=== PATIENT | male | born 1965 | race African-American/Black ===

== ENCOUNTER 2016-12-13 00:34 | Emergency (ER) | payer OTHER ==
[2016-12-13 00:56] VITALS: BP 129/64; PULSE 88; TEMP 97.8; BMI 27.4
--- NOTE | 2016-12-13 02:05 | PDOC ---
History of Present Illness - General History Source: Patient Exam Limitations: No Limitations - History of Present Illness Initial Comments: 12/13/16 02:56 The patient is a 51-year-old male, with a significant past medical history of diabetes, hyperlipidemia, hypercholesterolemia, lymphoma, CVA (2009), who presents to the emergency department complaining of bilateral pelvic pain that began today. He describes his pain as sharp and constant. He states he feels weak, secondary to pelvic pain. The patient reports he was previously diagnosed with lymphoma within the pelvis bilaterally. After diagnosis about a year ago, his oncologist, Dr. Singh, planned to administer chemotherapy, but the patient states he believes he is not in a stable state in order to follow-up with this plan. The patient reports he currently lives at the [facility] in [place]. The patient reports he has not returned for a follow-up with oncologist. His last visit to his PCP was also about a year ago. He reports he experienced an episode of chest tightness and dyspnea earlier today. He denies any diaphoresis, palpitations, and shortness of breath. He denies any changes in appetite. He denies fever, chills, cough, headache, and dizziness. He denies dysuria, frequency, urgency, and hematuria. Allergies: Chlordiazepoxide HCl (nausea) Past Surgical History: None reported. Social History: Former smoker. ETOH and cocaine abuse. PCP: Dr. Jaswinder Tadeo ([phone]) <Isacc Batista - Last Filed: 12/13/16 06:20> <Vidya Kat - Last Filed: 12/13/16 21:19> - General Stated Complaint: PAIN Time Seen by Provider: 12/13/16 00:54 Past History <Isacc Batista - Last Filed: 12/13/16 06:20> - Past Medical History Anemia: No Asthma: No Cancer: No Cardiac Disorders: No CVA: Yes (2010, RT. HEMIPARSIS) COPD: No CHF: No Dementia: No Diabetes: Yes (ON MEDS) GI Disorders: No Disorders: No HTN: Yes Hypercholesterolemia: Yes Kidney Stones: No Liver Disease: No Suicide Attempt (Hx): No Seizures: Yes (SEIZURES- ETOH RLT last 2014) Thyroid Disease: No - Surgical History Abdominal Surgery: No Appendectomy: No Cardiac Surgery: No Cholecystectomy: No Lung Surgery: No Neurologic Surgery: No Orthopedic Surgery: No - Reproductive History Testicular Surgery: No - Immunization History Immunization Up to Date: Yes - Psycho/Social/Smoking Cessation Hx Anxiety: Yes Suicidal Ideation: No Smoking Status: No Smoking History: Never smoked Have you smoked in the past 12 months: Yes Number of Cigarettes Smoked Daily: 3 If you are a former smoker, when did you quit?: 2 MONTHS AGO Cigars Per Day: 0 'Breaking Loose' booklet given: 10/15/16 Hx Alcohol Use: Yes Drug/Substance Use Hx: Yes Substance Use Type: Alcohol, Cocaine Hx Substance Use Treatment: Yes (09/14 [facility]) <Vidya Kat - Last Filed: 12/13/16 21:19> - Past Medical History Allergies/Adverse Reactions: Allergies Allergy/AdvReac Type Severity Reaction Status Date / Time chlordiazepoxide HCl Allergy Nausea Verified 12/13/16 05:17 [From Librium] Home Medications: Ambulatory Orders Insulin Glargine,Hum.rec.anlog [Lantus Solostar PEN -] 50 units SQ HS #1 ins Aspirin [ASA -] 81 mg PO DAILY #30 tab.chew 09/11/16 Metformin HCl [Glucophage -] 500 mg PO DAILY #30 tablet 09/11/16 Simvastatin [Zocor -] 20 mg PO HS #30 tablet 09/11/16 Review of Systems - Review of Systems Able to Perform ROS?: Yes Comments:: 12/13/16 02:56 GENERAL/CONSTITUTIONAL: +General weakness. No fever or chills. HEAD, EYES, EARS, NOSE AND THROAT: No change in vision. No ear pain or discharge. No sore throat. CARDIOVASCULAR: No chest pain or shortness of breath. RESPIRATORY: No cough, wheezing, or hemoptysis. GASTROINTESTINAL: No nausea, vomiting, diarrhea or constipation. GENITOURINARY: +Bilateral pelvic lymphadenopathy within the inguinal region. No dysuria, frequency, or change in urination. MUSCULOSKELETAL: No joint or muscle swelling or pain. No neck or back pain. SKIN: No rash NEUROLOGIC: No headache, vertigo, loss of consciousness, or change in strength/ sensation. ENDOCRINE: No increased thirst. No abnormal weight change. HEMATOLOGIC/LYMPHATIC: No anemia, easy bleeding, or history of blood clots. ALLERGIC/IMMUNOLOGIC: No hives or skin allergy. <BatistaKaleighraetanisha - Last Filed: 12/13/16 06:20> *Physical Exam - Vital Signs Last Vital Signs Temp Pulse Resp BP Pulse Ox 97.8 F 88 20 129/64 99 12/13/16 00:35 12/13/16 00:35 12/13/16 00:35 12/13/16 00:35 12/13/16 00:35 - Physical Exam Comments: 12/13/16 02:57 GENERAL: Awake, alert, and fully oriented, in no acute distress HEAD: No signs of trauma EYES: PERRLA, EOMI, sclera anicteric, conjunctiva clear ENT: Auricles normal inspection, hearing grossly normal, nares patent, oropharynx clear without exudates. Moist mucosa NECK: Normal ROM, supple, no lymphadenopathy, JVD, or masses LUNGS: Breath sounds equal, clear to auscultation bilaterally. No wheezes, and no crackles HEART: Regular rate and rhythm, normal S1 and S2, no murmurs, rubs or gallops ABDOMEN: Soft, nontender, normoactive bowel sounds. No guarding, no rebound. No masses PELVIC: +Lymph node enlargement within the pelvis bilaterally within the inguinal regions. +Left groin lymphadenopathy approximately 10 cm in length and 4-6 cm deep. Right groin lymphadenopathy is significantly smaller. EXTREMITIES: +Minimal pitting edema in legs bilaterally. Normal range of motion. No clubbing or cyanosis. No cords, erythema, or tenderness NEUROLOGICAL: Cranial nerves II through XII grossly intact. Normal speech, normal gait SKIN: Warm, Dry, normal turgor, no rashes or lesions noted. <Isacc Batista - Last Filed: 12/13/16 06:20> - Vital Signs Last Vital Signs Temp Pulse Resp BP Pulse Ox 97.8 F 88 20 129/64 99 12/13/16 00:35 12/13/16 00:35 12/13/16 00:35 12/13/16 00:35 12/13/16 00:35 <Vidya Kat - Last Filed: 12/13/16 21:19> Heart Score/ECG Review - ECG Impressions Comment:: 12/13/16 03:5Vent. rate: 81 bpm IMPRESSION: Normal sinus rhythm. <Isacc Batista - Last Filed: 12/13/16 06:20> ED Treatment Course - LABORATORY CBC & Chemistry Diagram: 12/13/16 03:13 12/13/16 03:13 <Isacc Batista - Last Filed: 12/13/16 06:20> - LABORATORY CBC & Chemistry Diagram: 12/13/16 03:13 12/13/16 03:13 <Vidya Kat - Last Filed: 12/13/16 21:19> Medical Decision Making - Medical Decision Making 12/13/16 05:58 First call placed to Dr. Quiñones 05:40. Second call placed to Dr. Quiñones 05:58. Case discussed with Dr. Quiñones 06:20. <Isacc Batista - Last Filed: 12/13/16 06:20> - Medical Decision Making 12/13/16 21:17 Pt comes with enlarged groin lymph nodes. He has not followed up for lymphoma treatment. Labs are relatively normal, and patient is stable. I spoke to the docot taking call for his PMD, Shwetha Sanders, who tells me that the lymphoma treatment should be done on an outpatient basis and he is asking patient to follow up with Dr. Tadeo and encouraging patient to follow with the oncologists at [facility], as he has been referred there multiple times in the past. <Vidya Kat - Last Filed: 12/13/16 21:19> *DC/Admit/Observation/Transfer - Attestations Scribe Attestion: 12/13/16 02:57 Documentation prepared by Isacc Batista, acting as behavioral medical director for Vidya Kat MD. <Isacc Batista - Last Filed: 12/13/16 06:20> - Discharge Dispostion Admit: No <Vidya Kat - Last Filed: 12/13/16 21:19> Diagnosis at time of Disposition: Lymphadenopathy, inguinal, Uncontrolled diabetes mellitus - Discharge Dispostion Disposition: HOME Condition at time of disposition: Stable - Referrals Referrals: Jaswinder Tadeo [Primary Care Provider] - - Patient Instructions Printed Discharge Instructions: DI for Lymph Node Biopsy, Type 1 Diabetes
[2016-12-13] MEDS ORDERED: KETOROLAC TROMETHAMINE 30 MG/1 ML VIAL IVPUSH ONE (02:22)
[2016-12-13] MEDS ORDERED: KETOROLAC TROMETHAMINE 30 MG/1 ML VIAL ONE (03:04)
[2016-12-13 03:22] LABS: MCH 28.1 pg (25.7-33.7); MEAN CELL VOLUME 87.7 fl (80-96); MEAN PLT VOLUME 8.5 fl (7.5-11.1); PLATELET COUNT 182 K/MM3 (134-434); RDW 14.4 % (11.9-15.9); WHITE BLOOD COUNT 5.6 K/mm3 (4.0-10.0)
[2016-12-13 03:44] LABS: ALBUMIN 3.2 g/dl (3.4-5.0); ALK PHOS 102 U/L (45-117); ANION GAP 9 (8-16); BILIRUBIN,TOTAL 0.2 mg/dL (0.2-1.0); CALCIUM 8.2 mg/dL (8.5-10.1); CO2 29 mmol/L (21-32); CREATININE 0.9 mg/dL (0.7-1.3); SGOT/AST 19 U/L (15-37); SGPT/ALT 32 U/L (12-78); TOT PROT 5.8 g/dl (6.4-8.2)
[2016-12-13 04:08] LABS: GLUCOSE,RANDOM 348 mg/dL (74-106)
[2016-12-13 04:24] LABS: PLATELET COMMENT2 NO CLOTTING DETECTED; PLATELET COMMENT3 FEW GIANT PLTS; PLATELET ESTIMATE ADEQUATE (NORMAL)
[2016-12-13] MEDS ORDERED: INSULIN REGULAR HUMAN 100 UNITS/ML *VIAL SQ ONE (06:21)
[2016-12-13] MEDS ORDERED: INSULIN REGULAR HUMAN 100 UNITS/ML *VIAL ONE (06:46)
--- NOTE | 2016-12-13 16:20 | EKG ---
Test Reason : Blood Pressure : / mmHG Vent. Rate : 081 BPM Atrial Rate : 081 BPM P-R Int : 158 ms QRS Dur : 086 ms QT Int : 400 ms P-R-T Axes : 049 -11 029 degrees QTc Int : 464 ms NORMAL SINUS RHYTHM NORMAL ECG WHEN COMPARED WITH ECG OF 01-JUN-2016 08:58, NONSPECIFIC T WAVE ABNORMALITY HAS REPLACED INVERTED T WAVES IN INFERIOR LEADS Confirmed by PINA GALARZA, NAZARIO ([id number]) on 12/13/2016 4:19:48 PM Referred By: Confirmed By:NAZARIO HELLER MD
== END 2016-12-13 06:50 | disposition home or self-care (01) ==
LOC: JER 00:34
PROC: 3E013VG Introduction of Insulin into Subcutaneous Tissue, Percutaneous Approach (ICD-10-PCS; principal; 2016-12-13)
PROC: 3E0333Z Introduction of Anti-inflammatory into Peripheral Vein, Percutaneous Approach (ICD-10-PCS; 2016-12-13)
DX: C85.86 Other specified types of non-Hodgkin lymphoma, intrapelvic lymph nodes (principal); R59.0 Localized enlarged lymph nodes; E10.65 Type 1 diabetes mellitus with hyperglycemia; Z79.4 Long term (current) use of insulin; Z79.84 Long term (current) use of oral hypoglycemic drugs; I10 Essential (primary) hypertension; E78.00 Pure hypercholesterolemia, unspecified; G40.509 Epileptic seizures related to external causes, not intractable, without status epilepticus; I69.851 Hemiplegia and hemiparesis following other cerebrovascular disease affecting right dominant side; Z87.891 Personal history of nicotine dependence
CPT/HCPCS: 36415; 71020-TC; 80053; 85025; 93005; 93010; 96372; 96374; 99282-25

== ENCOUNTER 2017-01-02 15:31 | Inpatient (IN) | payer OTHER ==
[2017-01-02 17:50] VITALS: BMI 28.9
--- NOTE | 2017-01-02 23:00 | HP ---
CIWA Score - CIWA Score Nausea/Vomitin-Mild Nausea/No Vomiting Muscle Tremors: 4-Moderate,w/Arms Extend Anxiety: 4-Mod. Anxious/Guarded Agitation: 4-Moderately Restless Paroxysmal Sweats: 1-Minimal Palms Moist Orientation: 1-Uncertain about Date Tacttile Disturbances: 0-None Auditory Disturbances: 0-None Visual Disturbances: 0-None Headache: 2-Mild CIWA-Ar Total Score: 17 Admission ROS BHS - HPI Chief Complaint: WITHDRAWAL SX Allergies/Adverse Reactions: Allergies Allergy/AdvReac Type Severity Reaction Status Date / Time chlordiazepoxide HCl Allergy Nausea Verified 12/13/16 05:17 [From Librium] History of Present Illness: 51 YEARS OLD MALE WITH LONG HISTORY OF ALCOHOL NICOTINE DEPENDENCE, HAS DIABETES II, LUNG CA AND AXILLARIES + GROIN SWELLING, HAS BIPOLAR, LONGEST SOBRIETY 8 YEARS IS ADMITTED TO DETOX Exam Limitations: No Limitations - Ebola screening Have you traveled outside of the country in the last 21 days: No Have you had contact with anyone from an Ebola affected area: No Have you been sick,other than usual withdrawal symptoms: No Do you have a fever: No - Review of Systems Constitutional: Chills, Changes in sleep, Weight Stable EENT: reports: No Symptoms Reported Respiratory: reports: SOB with Exertion Cardiac: reports: Chest Pain (HAS CHRONIC CHEST PAIN), Palpitations GI: reports: Nausea, Poor Fluid Intake, Abdominal cramping : reports: No Symptoms Reported Musculoskeletal: reports: Back Pain Integumentary: reports: No Symptoms Reported Neuro: reports: Tremors Endocrine: reports: No Symptoms Reported Hematology: reports: No Symptoms Reported Psychiatric: reports: Judgement Intact, Depressed Other Systems: Reviewed and Negative Patient History - Patient Medical History Hx Anemia: No Hx Asthma: No Hx Chronic Obstructive Pulmonary Disease (COPD): No Hx Cancer: No Hx Cardiac Disorders: No Hx Congestive Heart Failure: No Hx Hypertension: No Hx Hypercholesterolemia: Yes Hx Pacemaker: No HX Cerebrovascular Accident: Yes (2009, RT. HEMIPARSIS) Hx Seizures: Yes (SEIZURES- ETOH RLT last 2014) Hx Dementia: No Hx Diabetes: Yes (ON MEDS) Hx Gastrointestinal Disorders: No Hx Liver Disease: No Hx Genitourinary Disorders: No Hx Sexually Transmitted Disorders: No Hx Renal Disease (ESRD): No Hx Thyroid Disease: No Hx Human Immunodeficiency Virus (HIV): No (last ) Hx Hepatitis C: No Hx Depression: No Hx Suicide Attempt: Yes (20 YEARS AGO CUT WRISTS X 7 STITICHES) Hx Bipolar Disorder: No Hx Schizophrenia: Yes (PARANOID SCHIZOPHRENIA) - Patient Surgical History Past Surgical History: No Hx Neurologic Surgery: No Hx Cataract Extraction: No Hx Cardiac Surgery: No Hx Lung Surgery: No Hx Breast Surgery: No Hx Breast Biopsy: No Hx Abdominal Surgery: No Hx Appendectomy: No Hx Cholecystectomy: No Hx Genitourinary Surgery: No Hx Orthopedic Surgery: No Other Surgical History: TRACHEOSPLASTY AT AGE 3 - PPD History Previous Implant?: Yes Documented Results: Negative w/proof Implanted On Prior [facility] Admission?: Yes Date: 01/04/16 Results: 0 mm PPD to be Administered?: Yes - Smoking Cessation Smoking history: Current every day smoker Have you smoked in the past 12 months: Yes Aproximately how many cigarettes per day: 3 If you are a former smoker, when did you quit?: 2 MONTHS AGO Cigars Per Day: 0 Hx Chewing Tobacco Use: No Initiated information on smoking cessation: Yes 'Breaking Loose' booklet given: 01/02/17 - Substance & Tx. History Hx Alcohol Use: Yes Hx Substance Use: Yes Substance Use Type: Alcohol, Cocaine Hx Substance Use Treatment: Yes - Substances Abused Alcohol Route: Oral Frequency: Daily Amount used: 4 PINTS VOLKA Age of first use: 15 Date of Last Use: 01/02/17 Family Disease History - Family Disease History Family Disease History: Diabetes: Father, Heart Disease: Mother (HTN), CA: Grandparent (BREAST) Admission Physical Exam S - Vital Signs Vital Signs: Vital Signs - 24 hr 01/02/17 17:48 Temperature 96.6 F L Pulse Rate 103 H Respiratory 18 Rate Blood Pressure 149/100 - Physical General Appearance: Yes: Nourished, Appropriately Dressed, Mild Distress, Tremorous, Irritable, Sweating, Anxious HEENTM: Yes: Hearing grossly Normal, Normal ENT Inspection, Normocephalic, Normal Voice Respiratory: Yes: Chest Non-Tender, Lungs Clear, Normal Breath Sounds, No Respiratory Distress, No Accessory Muscle Use Neck: Yes: Supple, Trachea in good position Breast: Yes: Breasts Symetrical Cardiology: Yes: Regular Rhythm, S1, S2, Tachycardia Abdominal: Yes: Non Tender, Soft Genitourinary: Yes: Within Normal Limits Back: Yes: Normal Inspection Musculoskeletal: Yes: full range of Motion, Gait Steady, Back pain Extremities: Yes: Normal Inspection, Normal Range of Motion, Non-Tender, Tremors Neurological: Yes: Alert, Motor Strength 5/5, Normal Response, Depressed Affect Integumentary: Yes: Warm Lymphatic: Yes: Within Normal Limits - Diagnostic (1) Alcohol dependence with uncomplicated withdrawal Current Visit: Yes Status: Acute (2) Nicotine dependence Current Visit: Yes Status: Acute Qualifiers: Nicotine product type: cigarettes Substance use status: in withdrawal Qualified Code(s): F17.213 - Nicotine dependence, cigarettes, with withdrawal Comment: . (3) Psoriasis Current Visit: Yes Status: Chronic Comment: SCALP (4) Type II diabetes mellitus Current Visit: Yes Status: Acute Qualifiers: Diabetes mellitus complication status: with neurologic complications Diabetes mellitus complication detail: with polyneuropathy Diabetes mellitus terminal press operator insulin use: with jail use Qualified Code(s): E11.42 - Type 2 diabetes mellitus with diabetic polyneuropathy; Z79.4 - [facility] (current) use of insulin (5) Depression Current Visit: Yes Status: Suspected Qualifiers: Depression Type: dysthymia Qualified Code(s): F34.1 - Dysthymic disorder (6) Status post CVA Current Visit: Yes Status: Inactive Comment: 2009, NO SEQUALA (7) Lymphoma involving lung Current Visit: Yes Status: Chronic Comment: X 8 YEARS, HAD LUNG TISSUE BIOPSY 2015, SCHEDULE FOR CHEMOTHERAPY "AFTER DETOX AND REHAB" Cleared for Admission [facility] - Detox or Rehab [facility] Level of Care: Medically Managed Detox Regimen/Protocol: Librium [facility] Breath Alcohol Content Breath Alcohol Content: 0 Urine Drug Screen - Results Drug Screen Negative: No Urine Drug Screen Results: ULISSES-Cocaine
[2017-01-02] MEDS ORDERED: P-EPHED 60MG/TRIPROLIDI 2.5MG TABLET PO PRN (23:05)
[2017-01-02] MEDS ORDERED: MENTHOL/PHENOL 1 EACH UD MM PRN (23:05)
[2017-01-02] MEDS ORDERED: NICOTINE POLACRILEX 2 MG GUM BC PRN (23:05)
[2017-01-02] MEDS ORDERED: MAGNESIUM CITRATE 300 ML BOTTLE PO PRN (23:05)
[2017-01-02] MEDS ORDERED: diphenhydrAMINE HCL 50 MG CAPSULE PO PRN (23:05)
[2017-01-02] MEDS ORDERED: diazePAM 5 MG TABLET PO PRN (23:05)
[2017-01-02] MEDS ORDERED: LOPERAMIDE HCL 2 MG CAPSULE PO PRN (23:05)
[2017-01-02] MEDS ORDERED: diazePAM 5 MG TABLET PO ONE (23:05)
[2017-01-02] MEDS ORDERED: ACETAMINOPHEN 325 MG TABLET (FP) PO PRN (23:05)
[2017-01-02] MEDS ORDERED: hydrOXYzine PAMOATE 50 MG CAPSULE (FP) PO PRN (23:05)
[2017-01-02] MEDS ORDERED: guaiFENesin/D-METHORPHAN HB 10 ML UNIT-DOSE CUPS PO PRN (23:05)
[2017-01-02] MEDS ORDERED: MAGNESIUM HYDROX 2400MG/30ML ORAL SUSPENSION 30 ML CUP PO PRN (23:05)
[2017-01-02] MEDS ORDERED: MAG HYDROX/AL HYDROX/SIMETH 30 ML UNIT-DOSE CUP PO PRN (23:05)
[2017-01-03 01:10] LABS: URINE APPEARANCE CLEAR; URINE BILIRUBIN NEGATIVE (NEGATIVE); URINE BLOOD NEGATIVE (NEGATIVE); URINE COLOR LTYELLOW; URINE GLUCOSE (UA) 3+ (NEGATIVE); URINE KETONE NEGATIVE (NEGATIVE); URINE LEUK ESTERASE NEGATIVE (NEGATIVE); URINE NITRITE NEGATIVE (NEGATIVE); URINE PROTEIN NEGATIVE (NEGATIVE); URINE UROBILINOGEN NEGATIVE E.U./dl (0.2-1.0)
[2017-01-03] MEDS: diazePAM 5 MG TABLET PO SCH ×4 (01:29→22:18)
[2017-01-03] MEDS ORDERED: metFORMIN HCL 500 MG TABLET (FP) PO SCH (07:00)
[2017-01-03] MEDS: INSULIN SLIDING SCALE (NOVOLOG) 1 VIAL SQ SCH ×4 (08:06→22:23)
[2017-01-03] MEDS: ASPIRIN 81 MG CHEWABLE TABLETS PO SCH (10:13)
[2017-01-03] MEDS: PRENATAL VITAMINS W/ FOLIC ACID TABLET (FP) PO SCH (10:13)
[2017-01-03] MEDS: NICOTINE 14 MG/24 HOURS TOPICAL PATCH TD SCH (10:14)
--- NOTE | 2017-01-03 10:18 | PN ---
S CIWA - CIWA Score Nausea/Vomitin Muscle Tremors: 4-Moderate,w/Arms Extend Anxiety: 4-Mod. Anxious/Guarded Agitation: 4-Moderately Restless Paroxysmal Sweats: 3 Orientation: 0-Oriented Tacttile Disturbances: 1-Very Mild Itch/Numbness Auditory Disturbances: 0-None Visual Disturbances: 0-None Headache: 4-Moderately Severe CIWA-Ar Total Score: 22 BHS Progress Note (SOAP) Subjective: nausea, sweats, interrupted sleep, anxiety,t remros, headache Objective: 01/03/17 10:17 Vital Signs - 24 hr 01/02/17 01/03/17 17:48 03:30 Temperature 96.6 F L Pulse Rate 103 H Respiratory 18 18 Rate Blood Pressure 149/100 Laboratory Tests 01/03/17 00:23 Urine Color Ltyellow Urine Appearance Clear Urine pH 5.0 Ur Specific [place] 1.036 H Urine Protein Negative Urine Glucose (UA) 3+ H Urine Ketones Negative Urine Blood Negative Urine Nitrite Negative Urine Bilirubin Negative Urine Urobilinogen Negative Ur Leukocyte Esterase Negative labs still pending, glycosuria Assessment: 01/03/17 10:18 withdrawal sx, hyperglycemia fromuncontrolled diabtese Plan: cont detox, BGM, insulaincoverage,diabetic diet, fluids, encourage ambualtion
[2017-01-03 10:53] LABS: ALBUMIN 3.2 g/dl (3.4-5.0); ANION GAP 12 (8-16); CALCIUM 8.5 mg/dL (8.5-10.1); CO2 28 mmol/L (21-32); CREATININE 0.9 mg/dL (0.7-1.3); GLUCOSE,RANDOM 165 mg/dL (74-106); SGOT/AST 17 U/L (15-37); SGPT/ALT 24 U/L (12-78)
[2017-01-03 10:54] LABS: ALK PHOS 80 U/L (45-117); BILIRUBIN,TOTAL 0.4 mg/dL (0.2-1.0); TOT PROT 5.8 g/dl (6.4-8.2)
[2017-01-03 11:00] LABS: MCH 29.4 pg (25.7-33.7); MEAN CELL VOLUME 89.2 fl (80-96); MEAN PLT VOLUME 8.7 fl (7.5-11.1); PLATELET COUNT 175 K/MM3 (134-434); RDW 14.3 % (11.9-15.9); WHITE BLOOD COUNT 4.5 K/mm3 (4.0-10.0)
[2017-01-03] MEDS ORDERED: INSULIN (NOVOLOG) ASPART 100 UNITS/ML 10ML VIAL ONE (11:07)
[2017-01-03] MEDS: LISINOPRIL 5 MG TABLET (FP) PO SCH (11:21)
--- NOTE | 2017-01-03 11:40 | CONSULT ---
[facility] Psychiatric Consult - Data Date of interview: 01/03/17 Admission source: [facility] Identifying data: New admission to [facility] for this 51 y/o AA male seeking detox treatment at [address] [place] [address] for alcohol and cocaine dependence.Patient is single, a father of eleven,unemployed,domiciled and supported on welfare. Substance Abuse History: - Smoking Cessation. Smoking history: Current every day smoker. Have you smoked in the past 12 months: Yes. Aproximately how many cigarettes per day: 3. If you are a former smoker, when did you quit?: 2 MONTHS AGO. Cigars Per Day: 0. Hx Chewing Tobacco Use: No. Initiated information on smoking cessation: Yes. 'Breaking Loose' booklet given: . - Substance & Tx. History. Hx Alcohol Use: Yes. Hx Substance Use: Yes. Substance Use Type: Alcohol, Cocaine. Hx Substance Use Treatment: Yes. - Substances Abused. Alcohol. Route: Oral. Frequency: Daily. Amount used: 4 PINTS VOLKA. Age of first use: 15. Date of Last Use: 01/02/17. Discussed in this session.Patient confirms this pattern of substance use. 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 Psychiatric History: History of multiple hospitalizations.Diagnosed with Paranoid Schizophrenia.Patient continues to refuse treatment with atypical antipsychotic medications because of adverse effects (abnormal involuntary movements and stiffness).No OPD care.Noted history of suicide attempt via self- mutilation years ago. Physical/Sexual Abuse/Trauma History: Patient denies. Additional Comment: Urine Drug Screen Results: ULISSES-Cocaine.Noted. Mental Status Exam - Mental Status Exam Alert and Oriented to: Time, Place, Person Cognitive Function: Good Patient Appearance: Well Groomed Mood: Withdrawn Affect: Mood Congruent Patient Behavior: Fatigued, Appropriate, Cooperative Speech Pattern: Clear Voice Loudness: Normal Thought Process: Goal Oriented Thought Disorder: Not Present Hallucinations: Denies Suicidal Ideation: Denies Homicidal Ideation: Denies Insight/Judgement: Poor Sleep: Fair Appetite: Good Gait/Station: Other (walks with a limp due to right-sided weakness.) Psychiatric Findings - Problem List ([place] 1, 2,3) (1) Alcohol dependence with uncomplicated withdrawal Current Visit: Yes Status: Acute (2) Nicotine dependence Current Visit: Yes Status: Acute Qualifiers: Nicotine product type: cigarettes Substance use status: in withdrawal Qualified Code(s): F17.213 - Nicotine dependence, cigarettes, with withdrawal Comment: . (3) Cocaine dependence Current Visit: Yes Status: Acute Qualifiers: Substance use status: uncomplicated Qualified Code(s): F14.20 - Cocaine dependence, uncomplicated Comment: . (4) Drug-induced mood disorder Current Visit: Yes Status: Chronic (5) Paranoid schizophrenia Current Visit: No Status: Suspected Comment: Historical diagnosis. (6) Type II diabetes mellitus Current Visit: Yes Status: Chronic Qualifiers: Diabetes mellitus complication status: with neurologic complications Diabetes mellitus complication detail: with polyneuropathy Diabetes mellitus intermediate card tender insulin use: with intermediate card tender use Qualified Code(s): E11.42 - Type 2 diabetes mellitus with diabetic polyneuropathy; Z79.4 - long term (current) use of insulin (7) Lymphoma involving lung Current Visit: Yes Status: Chronic Comment: X 8 YEARS, HAD LUNG TISSUE BIOPSY 2015, SCHEDULE FOR CHEMOTHERAPY "AFTER DETOX AND REHAB" (8) Psoriasis Current Visit: Yes Status: Chronic Comment: SCALP (9) S/P tracheoplasty Current Visit: No Status: Acute (10) HLD (hyperlipidemia) Current Visit: No Status: Chronic Qualifiers: Hyperlipidemia type: unspecified Qualified Code(s): E78.5 - Hyperlipidemia, unspecified (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 (12) Status post CVA Current Visit: Yes Status: Inactive Comment: 2009, NO SEQUALA (13) Hypercholesteremia Current Visit: Yes Status: Chronic Comment: . (14) Lymphoma Current Visit: Yes Status: Chronic (15) Lymphadenopathy, inguinal Current Visit: Yes Status: Chronic - Initial Treatment Plan Initial Treatment Plan: Psychoeducation.Detoxification.Patient declines to resume aripriprazole.Made aware of the dangers of non-adherence to psychotropic medications and the benefits of OPD care.Fall precautions.Observation.
[2017-01-03] MEDS: metFORMIN HCL 500 MG TABLET (FP) PO SCH (17:30)
--- NOTE | 2017-01-03 18:16 | EKG ---
Test Reason : Blood Pressure : / mmHG Vent. Rate : 069 BPM Atrial Rate : 069 BPM P-R Int : 150 ms QRS Dur : 098 ms QT Int : 434 ms P-R-T Axes : 039 -18 020 degrees QTc Int : 465 ms NORMAL SINUS RHYTHM MINIMAL VOLTAGE CRITERIA FOR LVH, MAY BE NORMAL VARIANT BORDERLINE ECG WHEN COMPARED WITH ECG OF 13-DEC-2016 03:22, NO SIGNIFICANT CHANGE WAS FOUND Confirmed by SCOTT GALARZA, LILIAN ([id number]) on 01/03/2017 6:16:20 PM Referred By: Karl Traore Confirmed By:LILIAN CHAVEZ MD
[2017-01-03] MEDS: THIAMINE HCL 100 MG TABLET (FP) PO SCH (22:18)
[2017-01-03] MEDS: ATORVASTATIN CA 10 MG TABLET (FP) PO SCH ×2 (22:18)
[2017-01-03] MEDS: INSULIN DETEMIR 100 UNITS/ML MDV SQ SCH (22:20)
[2017-01-04] MEDS ORDERED: INSULIN (NOVOLOG) ASPART 100 UNITS/ML 10ML VIAL ONE ×2 (06:01→17:28)
[2017-01-04] MEDS: metFORMIN HCL 500 MG TABLET (FP) PO SCH ×2 (06:21→17:05)
[2017-01-04] MEDS: INSULIN SLIDING SCALE (NOVOLOG) 1 VIAL SQ SCH ×4 (06:21→22:17)
[2017-01-04] MEDS: PRENATAL VITAMINS W/ FOLIC ACID TABLET (FP) PO SCH (10:22)
[2017-01-04] MEDS: diazePAM 5 MG TABLET PO SCH ×2 (10:23→22:17)
[2017-01-04] MEDS: NICOTINE 14 MG/24 HOURS TOPICAL PATCH TD SCH (10:23)
[2017-01-04] MEDS: LISINOPRIL 5 MG TABLET (FP) PO SCH (10:23)
[2017-01-04] MEDS: ASPIRIN 81 MG CHEWABLE TABLETS PO SCH (10:23)
--- NOTE | 2017-01-04 13:31 | PN ---
S CIWA - CIWA Score Nausea/Vomitin Muscle Tremors: 3 Anxiety: 4-Mod. Anxious/Guarded Agitation: 4-Moderately Restless Paroxysmal Sweats: No Perspiration Orientation: 0-Oriented Tacttile Disturbances: 0-None Auditory Disturbances: 0-None Visual Disturbances: 0-None Headache: 2-Mild CIWA-Ar Total Score: 16 BHS Progress Note (SOAP) Subjective: Anxious, sweating, nausea, tremor, interrupted sleep Objective: 01/04/17 13:30 Last Vital Signs Temp Pulse Resp BP Pulse Ox 96.6 F L 85 18 131/86 01/04/17 09:27 01/04/17 09:27 01/04/17 09:27 01/04/17 09:27 Laboratory Tests 01/03/17 01/03/17 01/03/17 00:23 08:00 08:00 WBC 4.5 RBC 4.56 Hgb 13.4 Hct 40.7 MCV 89.2 MCHC 33.0 RDW 14.3 Plt Count 175 MPV 8.7 Sodium 142 Potassium 3.6 Chloride 102 Carbon Dioxide 28 Anion Gap 12 BUN 22 H D Creatinine 0.9 Creat Clearance w eGFR > 60 POC Glucometer Random Glucose 165 H D Calcium 8.5 Total Bilirubin 0.4 D AST 17 ALT 24 D Alkaline Phosphatase 80 D Total Protein 5.8 L Albumin 3.2 L Urine Color Ltyellow Urine Appearance Clear Urine pH 5.0 Ur Specific [place] 1.036 H Urine Protein Negative Urine Glucose (UA) 3+ H Urine Ketones Negative Urine Blood Negative Urine Nitrite Negative Urine Bilirubin Negative Urine Urobilinogen Negative Ur Leukocyte Esterase Negative RPR Titer 01/03/17 01/03/17 01/03/17 08:00 11:05 17:38 WBC RBC Hgb Hct MCV MCHC RDW Plt Count MPV Sodium Potassium Chloride Carbon Dioxide Anion Gap BUN Creatinine Creat Clearance w eGFR POC Glucometer 398 358 Random Glucose Calcium Total Bilirubin AST ALT Alkaline Phosphatase Total Protein Albumin Urine Color Urine Appearance Urine pH Ur Specific [place] Urine Protein Urine Glucose (UA) Urine Ketones Urine Blood Urine Nitrite Urine Bilirubin Urine Urobilinogen Ur Leukocyte Esterase RPR Titer Nonreactive 01/03/17 01/04/17 22:44 05:59 WBC RBC Hgb Hct MCV MCHC RDW Plt Count MPV Sodium Potassium Chloride Carbon Dioxide Anion Gap BUN Creatinine Creat Clearance w eGFR POC Glucometer 297 260 Random Glucose Calcium Total Bilirubin AST ALT Alkaline Phosphatase Total Protein Albumin Urine Color Urine Appearance Urine pH Ur Specific [place] Urine Protein Urine Glucose (UA) Urine Ketones Urine Blood Urine Nitrite Urine Bilirubin Urine Urobilinogen Ur Leukocyte Esterase RPR Titer Labs noted Assessment: 01/04/17 13:30 Withdrawal symptoms Plan: Continue detox
[2017-01-04] MEDS: ATORVASTATIN CA 10 MG TABLET (FP) PO SCH ×2 (22:17)
[2017-01-04] MEDS: THIAMINE HCL 100 MG TABLET (FP) PO SCH (22:17)
[2017-01-04] MEDS: INSULIN DETEMIR 100 UNITS/ML MDV SQ SCH (22:17)
[2017-01-05] MEDS ORDERED: INSULIN (NOVOLOG) ASPART 100 UNITS/ML 10ML VIAL ONE ×3 (07:12→16:51)
[2017-01-05] MEDS: INSULIN SLIDING SCALE (NOVOLOG) 1 VIAL SQ SCH ×4 (07:27→21:20)
[2017-01-05] MEDS: metFORMIN HCL 500 MG TABLET (FP) PO SCH ×2 (07:27→17:01)
[2017-01-05] MEDS: diazePAM 5 MG TABLET PO SCH ×2 (10:06→22:19)
[2017-01-05] MEDS: LISINOPRIL 5 MG TABLET (FP) PO SCH (10:06)
[2017-01-05] MEDS: ASPIRIN 81 MG CHEWABLE TABLETS PO SCH (10:06)
[2017-01-05] MEDS: PRENATAL VITAMINS W/ FOLIC ACID TABLET (FP) PO SCH (10:06)
[2017-01-05] MEDS: NICOTINE 14 MG/24 HOURS TOPICAL PATCH TD SCH (10:06)
--- NOTE | 2017-01-05 13:35 | PN ---
[facility] Progress Note (SOAP) Subjective: Sweating, Tremors. Objective: PT. A & O X 3. 01/05/17 13:32 Vital Signs Temperature 96.1 F L 01/05/17 13:18 Pulse Rate 92 H 01/05/17 13:18 Respiratory Rate 20 01/05/17 13:18 Blood Pressure 125/80 01/05/17 13:18 O2 Sat by Pulse Oximetry (%) Laboratory Last Values WBC 4.5 K/mm3 (4.0-10.0) 01/03/17 08:00 RBC 4.56 M/mm3 (4.00-5.60) 01/03/17 08:00 Hgb 13.4 GM/dL (11.7-16.9) 01/03/17 08:00 Hct 40.7 % (35.4-49) 01/03/17 08:00 MCV 89.2 fl (80-96) 01/03/17 08:00 MCHC 33.0 g/dl (32.0-35.9) 01/03/17 08:00 RDW 14.3 % (11.9-15.9) 01/03/17 08:00 Plt Count 175 K/MM3 (134-434) 01/03/17 08:00 MPV 8.7 fl (7.5-11.1) 01/03/17 08:00 Sodium 142 mmol/L (136-145) 01/03/17 08:00 Potassium 3.6 mmol/L (3.5-5.1) 01/03/17 08:00 Chloride 102 mmol/L (98-107) 01/03/17 08:00 Carbon Dioxide 28 mmol/L (21-32) 01/03/17 08:00 Anion Gap 12 (8-16) 01/03/17 08:00 BUN 22 mg/dL (7-18) H D 01/03/17 08:00 Creatinine 0.9 mg/dL (0.7-1.3) 01/03/17 08:00 Creat Clearance w eGFR > 60 (>60) 01/03/17 08:00 POC Glucometer 272 UNITS (()) 01/05/17 11:42 Random Glucose 165 mg/dL (74-106) H D 01/03/17 08:00 Calcium 8.5 mg/dL (8.5-10.1) 01/03/17 08:00 Total Bilirubin 0.4 mg/dL (0.2-1.0) D 01/03/17 08:00 AST 17 U/L (15-37) 01/03/17 08:00 ALT 24 U/L (12-78) D 01/03/17 08:00 Alkaline Phosphatase 80 U/L (45-117) D 01/03/17 08:00 Total Protein 5.8 g/dl (6.4-8.2) L 01/03/17 08:00 Albumin 3.2 g/dl (3.4-5.0) L 01/03/17 08:00 Urine Color Ltyellow 01/03/17 00:23 Urine Appearance Clear 01/03/17 00:23 Urine pH 5.0 (5.0-8.0) 01/03/17 00:23 Ur Specific [place] 1.036 (1.001-1.035) H 01/03/17 00:23 Urine Protein Negative (NEGATIVE) 01/03/17 00:23 Urine Glucose (UA) 3+ (NEGATIVE) H 01/03/17 00:23 Urine Ketones Negative (NEGATIVE) 01/03/17 00:23 Urine Blood Negative (NEGATIVE) 01/03/17 00:23 Urine Nitrite Negative (NEGATIVE) 01/03/17 00:23 Urine Bilirubin Negative (NEGATIVE) 01/03/17 00:23 Urine Urobilinogen Negative E.U./dl (0.2-1.0) 01/03/17 00:23 Ur Leukocyte Esterase Negative (NEGATIVE) 01/03/17 00:23 RPR Titer Nonreactive (NONREACTIVE) 01/03/17 08:00 LABS NOTED. Assessment: 01/05/17 13:34 WITHDRAWAL SYMPTOMS. Plan: CONTINUE DETOX.
[2017-01-05] MEDS: INSULIN DETEMIR 100 UNITS/ML MDV SQ SCH (21:19)
[2017-01-05] MEDS: ATORVASTATIN CA 10 MG TABLET (FP) PO SCH ×2 (22:19→22:20)
[2017-01-05] MEDS: THIAMINE HCL 100 MG TABLET (FP) PO SCH (22:19)
[2017-01-06] MEDS ORDERED: INSULIN (NOVOLOG) ASPART 100 UNITS/ML 10ML VIAL ONE (07:59)
[2017-01-06] MEDS: metFORMIN HCL 500 MG TABLET (FP) PO SCH (08:00)
[2017-01-06] MEDS: INSULIN SLIDING SCALE (NOVOLOG) 1 VIAL SQ SCH (08:00)
[2017-01-06 09:50] VITALS: BP 133/83; PULSE 90; TEMP 96.4
[2017-01-06] MEDS ORDERED: diazePAM 5 MG TABLET PO SCH (10:00)
[2017-01-06] MEDS: ASPIRIN 81 MG CHEWABLE TABLETS PO SCH (10:02)
[2017-01-06] MEDS: LISINOPRIL 5 MG TABLET (FP) PO SCH (10:02)
[2017-01-06] MEDS: PRENATAL VITAMINS W/ FOLIC ACID TABLET (FP) PO SCH (10:02)
[2017-01-06] MEDS: NICOTINE 14 MG/24 HOURS TOPICAL PATCH TD SCH (10:02)
--- NOTE | 2017-01-06 10:34 | DS ---
[facility] Detox Discharge Summary Admission Date: 01/02/17 Discharge Date: 01/06/17 - History Present History: Alcohol Dependence, Cocaine Dependence Pertinent Past History: TYPE II DM HX. OF CVA PSORIASIS HYPERLIPIDEMIA - Physical Exam Results Vital Signs: Vital Signs Temperature 96.4 F L 01/06/17 09:50 Pulse Rate 90 01/06/17 09:50 Respiratory Rate 18 01/06/17 09:50 Blood Pressure 133/83 01/06/17 09:50 O2 Sat by Pulse Oximetry (%) Pertinent Admission Physical Exam Findings: WITHDRAWAL SX. Laboratory Last Values WBC 4.5 K/mm3 (4.0-10.0) 01/03/17 08:00 RBC 4.56 M/mm3 (4.00-5.60) 01/03/17 08:00 Hgb 13.4 GM/dL (11.7-16.9) 01/03/17 08:00 Hct 40.7 % (35.4-49) 01/03/17 08:00 MCV 89.2 fl (80-96) 01/03/17 08:00 MCHC 33.0 g/dl (32.0-35.9) 01/03/17 08:00 RDW 14.3 % (11.9-15.9) 01/03/17 08:00 Plt Count 175 K/MM3 (134-434) 01/03/17 08:00 MPV 8.7 fl (7.5-11.1) 01/03/17 08:00 Sodium 142 mmol/L (136-145) 01/03/17 08:00 Potassium 3.6 mmol/L (3.5-5.1) 01/03/17 08:00 Chloride 102 mmol/L (98-107) 01/03/17 08:00 Carbon Dioxide 28 mmol/L (21-32) 01/03/17 08:00 Anion Gap 12 (8-16) 01/03/17 08:00 BUN 22 mg/dL (7-18) H D 01/03/17 08:00 Creatinine 0.9 mg/dL (0.7-1.3) 01/03/17 08:00 Creat Clearance w eGFR > 60 (>60) 01/03/17 08:00 POC Glucometer 250 UNITS (()) 01/06/17 05:58 Random Glucose 165 mg/dL (74-106) H D 01/03/17 08:00 Calcium 8.5 mg/dL (8.5-10.1) 01/03/17 08:00 Total Bilirubin 0.4 mg/dL (0.2-1.0) D 01/03/17 08:00 AST 17 U/L (15-37) 01/03/17 08:00 ALT 24 U/L (12-78) D 01/03/17 08:00 Alkaline Phosphatase 80 U/L (45-117) D 01/03/17 08:00 Total Protein 5.8 g/dl (6.4-8.2) L 01/03/17 08:00 Albumin 3.2 g/dl (3.4-5.0) L 01/03/17 08:00 Urine Color Ltyellow 01/03/17 00:23 Urine Appearance Clear 01/03/17 00:23 Urine pH 5.0 (5.0-8.0) 01/03/17 00:23 Ur Specific [place] 1.036 (1.001-1.035) H 01/03/17 00:23 Urine Protein Negative (NEGATIVE) 01/03/17 00:23 Urine Glucose (UA) 3+ (NEGATIVE) H 01/03/17 00:23 Urine Ketones Negative (NEGATIVE) 01/03/17 00:23 Urine Blood Negative (NEGATIVE) 01/03/17 00:23 Urine Nitrite Negative (NEGATIVE) 01/03/17 00:23 Urine Bilirubin Negative (NEGATIVE) 01/03/17 00:23 Urine Urobilinogen Negative E.U./dl (0.2-1.0) 01/03/17 00:23 Ur Leukocyte Esterase Negative (NEGATIVE) 01/03/17 00:23 RPR Titer Nonreactive (NONREACTIVE) 01/03/17 08:00 LABS NOTED - Treatment Hospital Course: Detox Protocol Followed, Detoxed Safely, Responded well, Discharged Condition Good Patient has Accepted a Rehab Referral to: PT. GIVEN ADDRESS & TEL # [facility] [place] - Medication Discharge Medications: Ambulatory Orders Insulin Glargine,Hum.rec.anlog [Lantus Solostar PEN -] 50 units SQ HS #1 ins Aspirin [ASA -] 81 mg PO DAILY #30 tab.chew 09/11/16 Metformin HCl [Glucophage -] 500 mg PO DAILY #30 tablet 09/11/16 Simvastatin [Zocor -] 20 mg PO HS #30 tablet 09/11/16 - Diagnosis (1) Alcohol dependence with uncomplicated withdrawal Current Visit: Yes Status: Acute (2) Cocaine dependence Current Visit: Yes Status: Acute Qualifiers: Substance use status: uncomplicated Qualified Code(s): F14.20 - Cocaine dependence, uncomplicated (3) Nicotine dependence Current Visit: Yes Status: Acute Qualifiers: Nicotine product type: cigarettes Substance use status: in withdrawal Qualified Code(s): F17.213 - Nicotine dependence, cigarettes, with withdrawal (4) Drug-induced mood disorder Current Visit: Yes Status: Chronic (5) Hypercholesteremia Current Visit: Yes Status: Chronic (6) Type II diabetes mellitus Current Visit: Yes Status: Chronic Qualifiers: Diabetes mellitus complication status: with neurologic complications Diabetes mellitus complication detail: with polyneuropathy Diabetes mellitus rat exterminator insulin use: with rat exterminator use Qualified Code(s): E11.42 - Type 2 diabetes mellitus with diabetic polyneuropathy; Z79.4 - termite treater helper (current) use of insulin (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
== END 2017-01-06 10:20 | disposition home or self-care (01) | DRG 774 ==
LOC: YASAS 15:31 → Y3N 22:08
PROVIDERS: ADMIT Internal Medicine; ATTEND Internal Medicine
PROC: HZ2ZZZZ Detoxification Services for Substance Abuse Treatment (ICD-10-PCS; principal; 2017-01-06)
DX: F10.230 Alcohol dependence with withdrawal, uncomplicated (principal); F14.20 Cocaine dependence, uncomplicated; F17.213 Nicotine dependence, cigarettes, with withdrawal; F20.0 Paranoid schizophrenia; F19.24 Other psychoactive substance dependence with psychoactive substance-induced mood disorder; E11.42 Type 2 diabetes mellitus with diabetic polyneuropathy; Z79.4 Long term (current) use of insulin; E78.5 Hyperlipidemia, unspecified; L40.9 Psoriasis, unspecified; C85.92 Non-Hodgkin lymphoma, unspecified, intrathoracic lymph nodes
CPT/HCPCS: 36415; 80053; 81003; 85027; 86593; 93005; 93010

== ENCOUNTER 2017-02-08 10:51 | Inpatient (IN) | payer OTHER ==
[2017-02-08 11:10] VITALS: BMI 29.1
--- NOTE | 2017-02-08 13:51 | HP ---
CIWA Score - CIWA Score Nausea/Vomitin-No Nausea/No Vomiting Muscle Tremors: 4-Moderate,w/Arms Extend Anxiety: 4-Mod. Anxious/Guarded Agitation: 3 Paroxysmal Sweats: 3 Orientation: 0-Oriented Tacttile Disturbances: 1-Very Mild Itch/Numbness Auditory Disturbances: 0-None Visual Disturbances: 0-None Headache: 0-None Present CIWA-Ar Total Score: 15 Admission ROS BHS - HPI Chief Complaint: Withdrawal sx. Allergies/Adverse Reactions: Allergies Allergy/AdvReac Type Severity Reaction Status Date / Time chlordiazepoxide HCl Allergy Nausea Verified 12/13/16 05:17 [From Librium] History of Present Illness: 51 y/o man with a long hx. of alcoholism is admitted for detox. Pt. has been in previous detox, denies significant sobriety. Exam Limitations: No Limitations - Ebola screening Have you traveled outside of the country in the last 21 days: No Have you had contact with anyone from an Ebola affected area: No Have you been sick,other than usual withdrawal symptoms: No Do you have a fever: No - Review of Systems Constitutional: Diaphoresis EENT: reports: No Symptoms Reported Respiratory: reports: No Symptoms reported Cardiac: reports: No Symptoms Reported GI: reports: Nausea, Abdominal cramping : reports: No Symptoms Reported Musculoskeletal: reports: Back Pain Integumentary: reports: Sweating Neuro: reports: Tingling, Tremors Endocrine: reports: No Symptoms Reported Hematology: reports: No Symptoms Reported Psychiatric: reports: No Sypmtoms Reported Other Systems: Reviewed and Negative Patient History - Patient Medical History Hx Anemia: No Hx Asthma: No Hx Chronic Obstructive Pulmonary Disease (COPD): No Hx Cancer: Yes (Hodgkin's lymphoma, Tx. with radiation is pending.) Hx Cardiac Disorders: No Hx Congestive Heart Failure: No Hx Hypertension: No Hx Hypercholesterolemia: Yes Hx Pacemaker: No HX Cerebrovascular Accident: Yes (2010, RT. HEMIPARSIS) Hx Seizures: Yes (many yrs. ago) Hx Dementia: No Hx Diabetes: Yes Hx Gastrointestinal Disorders: No Hx Liver Disease: No Hx Genitourinary Disorders: No Hx Sexually Transmitted Disorders: No Hx Renal Disease (ESRD): No Hx Thyroid Disease: No Hx Human Immunodeficiency Virus (HIV): No Hx Hepatitis C: No Hx Depression: No Hx Suicide Attempt: No Hx Bipolar Disorder: No Hx Schizophrenia: Yes - Patient Surgical History Past Surgical History: Yes Hx Neurologic Surgery: No Hx Cataract Extraction: No Hx Cardiac Surgery: No Hx Lung Surgery: No Hx Breast Surgery: No Hx Breast Biopsy: No Hx Abdominal Surgery: No Hx Appendectomy: No Hx Cholecystectomy: No Hx Genitourinary Surgery: No Hx Section: No Hx Orthopedic Surgery: No Other Surgical History: TRACHEOSPLASTY AT AGE 3, biopsy of lymph node Anesthesia Reaction: No - PPD History Date: 01/05/17 Results: 0 mm PPD to be Administered?: No - Smoking Cessation Smoking history: Current every day smoker Have you smoked in the past 12 months: Yes Aproximately how many cigarettes per day: 3 If you are a former smoker, when did you quit?: 2 MONTHS AGO Cigars Per Day: 0 Hx Chewing Tobacco Use: No Initiated information on smoking cessation: Yes 'Breaking Loose' booklet given: 02/08/17 - Substance & Tx. History Hx Alcohol Use: Yes Hx Substance Use: Yes Substance Use Type: Alcohol, Cocaine Hx Substance Use Treatment: Yes (Detox) - Substances Abused Alcohol Route: Oral Frequency: Daily Amount used: Beer 1(6pack) Age of first use: 22 Date of Last Use: 02/07/17 Cocaine Route: Inhalation Frequency: 1-3 times last 30 days Amount used: $50.00 Age of first use: 22 Date of Last Use: 02/05/17 Family Disease History - Family Disease History Family Disease History: Diabetes: Father, Heart Disease: Mother (HTN), CA: Grandparent (BREAST) Admission Physical Exam BHS - Vital Signs Vital Signs: Vital Signs - 24 hr 02/08/17 11:01 Temperature 95.6 F L Pulse Rate 84 Respiratory 18 Rate Blood Pressure 142/77 - Physical General Appearance: Yes: Tremorous, Irritable, Sweating, Anxious HEENTM: Yes: Within Normal Limits Respiratory: Yes: Chest Non-Tender, Lungs Clear, Normal Breath Sounds Neck: Yes: Supple Breast: Yes: Breast Exam Deferred Cardiology: Yes: Regular Rhythm, Regular Rate, S1, S2 Abdominal: Yes: Normal Bowel Sounds, Non Tender, Soft Genitourinary: Yes: Within Normal Limits Back: Yes: Within Normal Limits Extremities: Yes: Within Normal Limits Neurological: Yes: Fully Oriented, Alert Integumentary: Yes: Diaphoresis Lymphatic: Yes: Within Normal Limits - Diagnostic (1) Alcohol dependence with uncomplicated withdrawal Current Visit: Yes Status: Acute (2) Nicotine dependence Current Visit: Yes Status: Acute Qualifiers: Nicotine product type: cigarettes Substance use status: in withdrawal Qualified Code(s): F17.213 - Nicotine dependence, cigarettes, with withdrawal Comment: . (3) Psoriasis Current Visit: Yes Status: Chronic Comment: SCALP (4) Type II diabetes mellitus Current Visit: Yes Status: Chronic Qualifiers: Diabetes mellitus complication status: with neurologic complications Diabetes mellitus complication detail: with polyneuropathy Diabetes mellitus mcc insulin use: with mcc use Qualified Code(s): E11.42 - Type 2 diabetes mellitus with diabetic polyneuropathy; Z79.4 - [facility] (current) use of insulin Cleared for Admission [facility] - Detox or Rehab [facility] Level of Care: Medically Managed Detox Regimen/Protocol: Librium [facility] Breath Alcohol Content Breath Alcohol Content: 0 Urine Drug Screen - Results Drug Screen Negative: No Urine Drug Screen Results: ULISSES-Cocaine
[2017-02-08] MEDS ORDERED: guaiFENesin/D-METHORPHAN HB 10 ML UNIT-DOSE CUPS PO PRN (14:04)
[2017-02-08] MEDS ORDERED: NICOTINE POLACRILEX 2 MG GUM BC PRN (14:04)
[2017-02-08] MEDS ORDERED: MENTHOL/PHENOL 1 EACH UD MM PRN (14:04)
[2017-02-08] MEDS ORDERED: ACETAMINOPHEN 325 MG TABLET (FP) PO PRN (14:04)
[2017-02-08] MEDS ORDERED: chlordiazePOXIDE HCL 25 MG CAPSULE PO PRN (14:04)
[2017-02-08] MEDS ORDERED: MAGNESIUM CITRATE 300 ML BOTTLE PO PRN (14:04)
[2017-02-08] MEDS ORDERED: MAG HYDROX/AL HYDROX/SIMETH 30 ML UNIT-DOSE CUP PO PRN (14:04)
[2017-02-08] MEDS ORDERED: chlordiazePOXIDE HCL 25 MG CAPSULE PO ONE (14:04)
[2017-02-08] MEDS ORDERED: P-EPHED 60MG/TRIPROLIDI 2.5MG TABLET PO PRN (14:04)
[2017-02-08] MEDS ORDERED: IBUPROFEN 400 MG TABLET (FP) PO PRN (14:04)
[2017-02-08] MEDS ORDERED: MAGNESIUM HYDROX 2400MG/30ML ORAL SUSPENSION 30 ML CUP PO PRN (14:04)
[2017-02-08] MEDS ORDERED: LOPERAMIDE HCL 2 MG CAPSULE PO PRN (14:04)
[2017-02-08] MEDS ORDERED: hydrOXYzine PAMOATE 50 MG CAPSULE (FP) PO PRN (14:04)
[2017-02-08] MEDS ORDERED: diazePAM 5 MG TABLET PO ONE (14:34)
[2017-02-08] MEDS ORDERED: diazePAM 5 MG TABLET PO PRN (14:34)
[2017-02-08] MEDS: ASPIRIN 81 MG CHEWABLE TABLETS PO SCH (15:56)
[2017-02-08] MEDS ORDERED: chlordiazePOXIDE HCL 25 MG CAPSULE PO SCH (17:00)
[2017-02-08] MEDS: INSULIN SLIDING SCALE (NOVOLOG) 1 VIAL SQ SCH ×2 (17:31→22:50)
[2017-02-08] MEDS ORDERED: INSULIN (NOVOLOG) ASPART 100 UNITS/ML 10ML VIAL ONE ×2 (17:33→22:49)
[2017-02-08 20:58] LABS: URINE APPEARANCE CLEAR; URINE BILIRUBIN NEGATIVE (NEGATIVE); URINE BLOOD NEGATIVE (NEGATIVE); URINE COLOR LTYELLOW; URINE GLUCOSE (UA) 3+ (NEGATIVE); URINE KETONE NEGATIVE (NEGATIVE); URINE LEUK ESTERASE NEGATIVE (NEGATIVE); URINE NITRITE NEGATIVE (NEGATIVE); URINE PROTEIN NEGATIVE (NEGATIVE); URINE UROBILINOGEN NEGATIVE E.U./dl (0.2-1.0)
[2017-02-08] MEDS ORDERED: INSULIN DETEMIR 100 UNITS/ML MDV SQ SCH (22:00)
[2017-02-08] MEDS: NICOTINE 7 MG/24 HOURS TOPICAL PATCH TD SCH (22:43)
[2017-02-08] MEDS: diphenhydrAMINE HCL 50 MG CAPSULE PO PRN (22:43)
[2017-02-08] MEDS: THIAMINE HCL 100 MG TABLET (FP) PO SCH (22:43)
[2017-02-08] MEDS: diazePAM 5 MG TABLET PO SCH (22:44)
[2017-02-09] MEDS: diazePAM 5 MG TABLET PO SCH ×3 (05:53→22:46)
[2017-02-09] MEDS ORDERED: INSULIN (NOVOLOG) ASPART 100 UNITS/ML 10ML VIAL ONE ×4 (05:57→22:50)
[2017-02-09] MEDS ORDERED: metFORMIN HCL 500 MG TABLET (FP) PO SCH (07:00)
[2017-02-09] MEDS: metFORMIN HCL 500 MG TABLET (FP) PO SCH ×2 (07:05→17:09)
[2017-02-09] MEDS: INSULIN SLIDING SCALE (NOVOLOG) 1 VIAL SQ SCH ×4 (07:06→22:46)
--- NOTE | 2017-02-09 10:09 | PN ---
S CIWA - CIWA Score Nausea/Vomitin Muscle Tremors: 2 Anxiety: 2 Agitation: 2 Paroxysmal Sweats: 3 Orientation: 0-Oriented Tacttile Disturbances: 2-Mild Itch/Numbness/Burn Auditory Disturbances: 0-None Visual Disturbances: 0-None Headache: 0-None Present CIWA-Ar Total Score: 13 BHS Progress Note (SOAP) Subjective: FEELING BETTER , INTERRUPTED SLEEP, Objective: 02/09/17 10:09 Vital Signs Temperature 97.9 F 02/09/17 09:47 Pulse Rate 101 H 02/09/17 09:47 Respiratory Rate 18 02/09/17 09:47 Blood Pressure 131/82 02/09/17 09:47 O2 Sat by Pulse Oximetry (%) Laboratory Tests 02/08/17 20:30 Urine Color Ltyellow Urine Appearance Clear Urine pH 5.0 Ur Specific [place] 1.037 H Urine Protein Negative Urine Glucose (UA) 3+ H Urine Ketones Negative Urine Blood Negative Urine Nitrite Negative Urine Bilirubin Negative Urine Urobilinogen Negative Ur Leukocyte Esterase Negative 02/09/17 11:35 PT AOX3 IN NAD AMBULATING Assessment: 02/09/17 10:09 WITHDRAWAL SX;S Plan: CONT. DETOX INCREASE FLUIDS
[2017-02-09 10:37] LABS: MCH 29.2 pg (25.7-33.7); MCHC 32.7 g/dl (32.0-35.9); MEAN CELL VOLUME 89.3 fl (80-96); MEAN PLT VOLUME 9.2 fl (7.5-11.1); PLATELET COUNT 184 K/MM3 (134-434); RDW 14.4 % (11.9-15.9); WHITE BLOOD COUNT 4.4 K/mm3 (4.0-10.0)
[2017-02-09 10:39] LABS: ALBUMIN 3.5 g/dl (3.4-5.0); ALK PHOS 99 U/L (45-117); ANION GAP 8 (8-16); BILIRUBIN,TOTAL 0.4 mg/dL (0.2-1.0); CALCIUM 9.2 mg/dL (8.5-10.1); CO2 31 mmol/L (21-32); CREATININE 0.8 mg/dL (0.7-1.3); GLUCOSE,RANDOM 232 mg/dL (74-106); SGOT/AST 18 U/L (15-37); SGPT/ALT 32 U/L (12-78); TOT PROT 6.3 g/dl (6.4-8.2)
[2017-02-09] MEDS: PRENATAL VITAMINS W/ FOLIC ACID TABLET (FP) PO SCH (10:46)
[2017-02-09] MEDS: ASPIRIN 81 MG CHEWABLE TABLETS PO SCH (10:46)
[2017-02-09] MEDS: NICOTINE 7 MG/24 HOURS TOPICAL PATCH TD SCH (10:46)
[2017-02-09 12:47] LABS: HIV 1 & 2 AB NEGATIVE; HIV 1 AGp24 NEGATIVE
--- NOTE | 2017-02-09 13:54 | CONSULT ---
[facility] Psychiatric Consult - Data Date of interview: 02/09/17 Admission source: [facility] Identifying data: This is 51 years old male with psychiatric hospitalization history, margarito romero Schizophrenia intoxicated withAlcohol, Cocaine and Nicotine Substance Abuse History: - Smoking Cessation. Smoking history: Current every day smoker. Have you smoked in the past 12 months: Yes. Aproximately how many cigarettes per day: 3. If you are a former smoker, when did you quit?: 2 MONTHS AGO. Cigars Per Day: 0. Hx Chewing Tobacco Use: No. Initiated information on smoking cessation: Yes. 'Breaking Loose' booklet given: . - Substance & Tx. History. Hx Alcohol Use: Yes. Hx Substance Use: Yes. Substance Use Type: Alcohol, Cocaine. Hx Substance Use Treatment: Yes (Detox). - Substances Abused. Alcohol. Route: Oral. Frequency: Daily. Amount used: Beer 1(6pack). Age of first use: 22. Date of Last Use: 02/07/17. Cocaine. Route: Inhalation. Frequency: 1-3 times last 30 days. Amount used: $ 50.00. Age of first use: 22. Date of Last Use: 02/05/17 Medical History: DM-2, Psoriasis, CVA history, Hypokilemia history, hypocalcemia history, Hypercholesterolemia hisotry, Hyperlipidemia history, Syncope history, Lymphoma history Psychiatric History: Patient reportsm unclear past psychiatric history , history of Schizophrenia with most rtecent psychitric admission one month ago for safety, reports no medications taking priormtom admission, patient reports taking ASbilify in the past, refusing to restart any psychiatric medications during detox protocol Physical/Sexual Abuse/Trauma History: Denies Additional Comment: Observation. Detox Unit Care Protocol Mental Status Exam - Mental Status Exam Alert and Oriented to: Person Cognitive Function: Fair Patient Appearance: Unkempt Mood: Sad, Anxious Affect: Normal Range Patient Behavior: Cooperative Speech Pattern: Delayed Voice Loudness: Mildly Soft/Quiet Thought Process: Circumstantial Thought Disorder: Being Controlled Hallucinations: Denies Suicidal Ideation: Denies Homicidal Ideation: Denies Insight/Judgement: Fair Sleep: Difficulty falling asleep Appetite: Fair Muscle strength/Tone: Mild Hypotonicity Gait/Station: Shuffling Additional Comments: Observation. Detox Unit Care Protocol Psychiatric Findings - Problem List ([place] 1, 2,3) (1) Alcohol dependence with uncomplicated withdrawal Current Visit: Yes Status: Acute (2) Nicotine dependence Current Visit: Yes Status: Acute Qualifiers: Nicotine product type: cigarettes Substance use status: in withdrawal Qualified Code(s): F17.213 - Nicotine dependence, cigarettes, with withdrawal Comment: . (3) Alcohol dependence Current Visit: No Status: Acute Comment: . (4) Drug-induced mood disorder Current Visit: No Status: Chronic (5) Paranoid schizophrenia Current Visit: No Status: Suspected Comment: Historical diagnosis. (6) Non compliance w medication regimen Current Visit: Yes Status: Acute - Initial Treatment Plan Initial Treatment Plan: Observation. Detox Unit Care Protocol
--- NOTE | 2017-02-09 15:01 | EKG ---
Test Reason : Blood Pressure : / mmHG Vent. Rate : 088 BPM Atrial Rate : 088 BPM P-R Int : 154 ms QRS Dur : 104 ms QT Int : 384 ms P-R-T Axes : 049 -09 011 degrees QTc Int : 464 ms NORMAL SINUS RHYTHM VOLTAGE CRITERIA FOR LEFT VENTRICULAR HYPERTROPHY ABNORMAL ECG WHEN COMPARED WITH ECG OF 03-JAN-2017 06:53, NO SIGNIFICANT CHANGE WAS FOUND Confirmed by HOLLY STEEN MD ([id number]) on 02/09/2017 3:00:59 PM Referred By: Confirmed By:HOLLY STEEN MD
[2017-02-09] MEDS ORDERED: chlordiazePOXIDE HCL 25 MG CAPSULE PO SCH (17:00)
[2017-02-09] MEDS: diphenhydrAMINE HCL 50 MG CAPSULE PO PRN (22:46)
[2017-02-09] MEDS: THIAMINE HCL 100 MG TABLET (FP) PO SCH (22:46)
[2017-02-09] MEDS: INSULIN DETEMIR 100 UNITS/ML MDV SQ SCH (22:55)
[2017-02-10] MEDS ORDERED: INSULIN (NOVOLOG) ASPART 100 UNITS/ML 10ML VIAL ONE ×4 (07:45→22:02)
[2017-02-10] MEDS: metFORMIN HCL 500 MG TABLET (FP) PO SCH ×2 (07:46→17:30)
[2017-02-10] MEDS: INSULIN SLIDING SCALE (NOVOLOG) 1 VIAL SQ SCH ×4 (07:47→22:01)
[2017-02-10] MEDS: PRENATAL VITAMINS W/ FOLIC ACID TABLET (FP) PO SCH (11:34)
[2017-02-10] MEDS: ASPIRIN 81 MG CHEWABLE TABLETS PO SCH (11:34)
[2017-02-10] MEDS: NICOTINE 7 MG/24 HOURS TOPICAL PATCH TD SCH (11:35)
[2017-02-10] MEDS: diazePAM 5 MG TABLET PO SCH ×2 (11:35→22:05)
--- NOTE | 2017-02-10 11:37 | PN ---
S CIWA - CIWA Score Nausea/Vomitin-No Nausea/No Vomiting Muscle Tremors: 4-Moderate,w/Arms Extend Anxiety: 3 Agitation: 4-Moderately Restless Paroxysmal Sweats: 3 Orientation: 0-Oriented Tacttile Disturbances: 0-None Auditory Disturbances: 0-None Visual Disturbances: 0-None Headache: 0-None Present CIWA-Ar Total Score: 14 BHS Progress Note (SOAP) Subjective: sweats shakes interrupted sleep body aches Objective: 02/10/17 11:36 Vital Signs Temperature 97.8 F 02/10/17 10:11 Pulse Rate 101 H 02/10/17 10:11 Respiratory Rate 20 02/10/17 10:11 Blood Pressure 138/68 02/10/17 10:11 O2 Sat by Pulse Oximetry (%) Laboratory Tests 02/08/17 02/08/17 02/08/17 17:30 20:30 22:46 WBC RBC Hgb Hct MCV MCHC RDW Plt Count MPV Sodium Potassium Chloride Carbon Dioxide Anion Gap BUN Creatinine Creat Clearance w eGFR POC Glucometer 307 287 Random Glucose Calcium Total Bilirubin AST ALT Alkaline Phosphatase Total Protein Albumin Urine Color Ltyellow Urine Appearance Clear Urine pH 5.0 Ur Specific [place] 1.037 H Urine Protein Negative Urine Glucose (UA) 3+ H Urine Ketones Negative Urine Blood Negative Urine Nitrite Negative Urine Bilirubin Negative Urine Urobilinogen Negative Ur Leukocyte Esterase Negative RPR Titer HIV 1&2 Antibody Screen HIV P24 Antigen 02/09/17 02/09/17 02/09/17 05:52 07:30 07:50 WBC 4.4 RBC 4.79 Hgb 14.0 Hct 42.8 MCV 89.3 MCHC 32.7 RDW 14.4 Plt Count 184 MPV 9.2 Sodium Potassium Chloride Carbon Dioxide Anion Gap BUN Creatinine Creat Clearance w eGFR POC Glucometer 234 Random Glucose Calcium Total Bilirubin AST ALT Alkaline Phosphatase Total Protein Albumin Urine Color Urine Appearance Urine pH Ur Specific [place] Urine Protein Urine Glucose (UA) Urine Ketones Urine Blood Urine Nitrite Urine Bilirubin Urine Urobilinogen Ur Leukocyte Esterase RPR Titer HIV 1&2 Antibody Screen Negative HIV P24 Antigen Negative 02/09/17 02/09/17 02/09/17 07:50 07:50 11:04 WBC RBC Hgb Hct MCV MCHC RDW Plt Count MPV Sodium 141 Potassium 4.3 Chloride 102 Carbon Dioxide 31 Anion Gap 8 BUN 16 D Creatinine 0.8 Creat Clearance w eGFR > 60 POC Glucometer 384 Random Glucose 232 H D Calcium 9.2 Total Bilirubin 0.4 AST 18 ALT 32 D Alkaline Phosphatase 99 D Total Protein 6.3 L Albumin 3.5 Urine Color Urine Appearance Urine pH Ur Specific [place] Urine Protein Urine Glucose (UA) Urine Ketones Urine Blood Urine Nitrite Urine Bilirubin Urine Urobilinogen Ur Leukocyte Esterase RPR Titer Nonreactive HIV 1&2 Antibody Screen HIV P24 Antigen 02/09/17 02/09/17 02/10/17 17:03 22:45 07:42 WBC RBC Hgb Hct MCV MCHC RDW Plt Count MPV Sodium Potassium Chloride Carbon Dioxide Anion Gap BUN Creatinine Creat Clearance w eGFR POC Glucometer 238 252 277 Random Glucose Calcium Total Bilirubin AST ALT Alkaline Phosphatase Total Protein Albumin Urine Color Urine Appearance Urine pH Ur Specific [place] Urine Protein Urine Glucose (UA) Urine Ketones Urine Blood Urine Nitrite Urine Bilirubin Urine Urobilinogen Ur Leukocyte Esterase RPR Titer HIV 1&2 Antibody Screen HIV P24 Antigen awake/alert ambulating no acute distress Assessment: 02/10/17 11:37 withdrawal sx Plan: continue detox increase fluids monitor bgm
[2017-02-10] MEDS ORDERED: chlordiazePOXIDE 5 MG CAPSULE PO SCH (17:00)
[2017-02-10] MEDS: THIAMINE HCL 100 MG TABLET (FP) PO SCH (22:05)
[2017-02-10] MEDS: INSULIN DETEMIR 100 UNITS/ML MDV SQ SCH (22:05)
[2017-02-11] MEDS: INSULIN SLIDING SCALE (NOVOLOG) 1 VIAL SQ SCH ×4 (06:46→22:51)
[2017-02-11] MEDS ORDERED: INSULIN (NOVOLOG) ASPART 100 UNITS/ML 10ML VIAL ONE ×4 (06:46→22:53)
[2017-02-11] MEDS: metFORMIN HCL 500 MG TABLET (FP) PO SCH ×2 (06:48→18:03)
[2017-02-11] MEDS: PRENATAL VITAMINS W/ FOLIC ACID TABLET (FP) PO SCH (10:20)
[2017-02-11] MEDS: ASPIRIN 81 MG CHEWABLE TABLETS PO SCH (10:21)
[2017-02-11] MEDS: NICOTINE 7 MG/24 HOURS TOPICAL PATCH TD SCH (10:21)
[2017-02-11] MEDS: diazePAM 5 MG TABLET PO SCH ×2 (10:21→22:50)
--- NOTE | 2017-02-11 10:32 | PN ---
B[facility] Progress Note (SOAP) Subjective: interrupted sleep, anxiety, lbp Objective: 02/11/17 10:30 Vital Signs Temperature 97.7 F 02/11/17 10:05 Pulse Rate 100 H 02/11/17 10:05 Respiratory Rate 16 02/11/17 10:05 Blood Pressure 131/89 02/11/17 10:05 O2 Sat by Pulse Oximetry (%) Laboratory Tests 02/08/17 02/08/17 02/08/17 17:30 20:30 22:46 WBC RBC Hgb Hct MCV MCHC RDW Plt Count MPV Sodium Potassium Chloride Carbon Dioxide Anion Gap BUN Creatinine Creat Clearance w eGFR POC Glucometer 307 287 Random Glucose Calcium Total Bilirubin AST ALT Alkaline Phosphatase Total Protein Albumin Urine Color Ltyellow Urine Appearance Clear Urine pH 5.0 Ur Specific [place] 1.037 H Urine Protein Negative Urine Glucose (UA) 3+ H Urine Ketones Negative Urine Blood Negative Urine Nitrite Negative Urine Bilirubin Negative Urine Urobilinogen Negative Ur Leukocyte Esterase Negative RPR Titer HIV 1&2 Antibody Screen HIV P24 Antigen 02/09/17 02/09/17 02/09/17 05:52 07:30 07:50 WBC 4.4 RBC 4.79 Hgb 14.0 Hct 42.8 MCV 89.3 MCHC 32.7 RDW 14.4 Plt Count 184 MPV 9.2 Sodium Potassium Chloride Carbon Dioxide Anion Gap BUN Creatinine Creat Clearance w eGFR POC Glucometer 234 Random Glucose Calcium Total Bilirubin AST ALT Alkaline Phosphatase Total Protein Albumin Urine Color Urine Appearance Urine pH Ur Specific [place] Urine Protein Urine Glucose (UA) Urine Ketones Urine Blood Urine Nitrite Urine Bilirubin Urine Urobilinogen Ur Leukocyte Esterase RPR Titer HIV 1&2 Antibody Screen Negative HIV P24 Antigen Negative 02/09/17 02/09/17 02/09/17 07:50 07:50 11:04 WBC RBC Hgb Hct MCV MCHC RDW Plt Count MPV Sodium 141 Potassium 4.3 Chloride 102 Carbon Dioxide 31 Anion Gap 8 BUN 16 D Creatinine 0.8 Creat Clearance w eGFR > 60 POC Glucometer 384 Random Glucose 232 H D Calcium 9.2 Total Bilirubin 0.4 AST 18 ALT 32 D Alkaline Phosphatase 99 D Total Protein 6.3 L Albumin 3.5 Urine Color Urine Appearance Urine pH Ur Specific [place] Urine Protein Urine Glucose (UA) Urine Ketones Urine Blood Urine Nitrite Urine Bilirubin Urine Urobilinogen Ur Leukocyte Esterase RPR Titer Nonreactive HIV 1&2 Antibody Screen HIV P24 Antigen 02/09/17 02/09/17 02/10/17 17:03 22:45 07:42 WBC RBC Hgb Hct MCV MCHC RDW Plt Count MPV Sodium Potassium Chloride Carbon Dioxide Anion Gap BUN Creatinine Creat Clearance w eGFR POC Glucometer 238 252 277 Random Glucose Calcium Total Bilirubin AST ALT Alkaline Phosphatase Total Protein Albumin Urine Color Urine Appearance Urine pH Ur Specific [place] Urine Protein Urine Glucose (UA) Urine Ketones Urine Blood Urine Nitrite Urine Bilirubin Urine Urobilinogen Ur Leukocyte Esterase RPR Titer HIV 1&2 Antibody Screen HIV P24 Antigen 02/10/17 02/10/17 02/10/17 11:38 16:37 21:59 WBC RBC Hgb Hct MCV MCHC RDW Plt Count MPV Sodium Potassium Chloride Carbon Dioxide Anion Gap BUN Creatinine Creat Clearance w eGFR POC Glucometer 328 299 335 Random Glucose Calcium Total Bilirubin AST ALT Alkaline Phosphatase Total Protein Albumin Urine Color Urine Appearance Urine pH Ur Specific [place] Urine Protein Urine Glucose (UA) Urine Ketones Urine Blood Urine Nitrite Urine Bilirubin Urine Urobilinogen Ur Leukocyte Esterase RPR Titer HIV 1&2 Antibody Screen HIV P24 Antigen pt aox3 in nad ambulating Assessment: 02/11/17 10:31 withdrawal sx's anxiety lbp Plan: cont. detox increase fluids pysch eval. motrin prn d/c in am
[2017-02-11] MEDS ORDERED: chlordiazePOXIDE HCL 10 MG CAPSULE PO SCH (17:00)
[2017-02-11] MEDS: THIAMINE HCL 100 MG TABLET (FP) PO SCH (22:50)
[2017-02-11] MEDS: INSULIN DETEMIR 100 UNITS/ML MDV SQ SCH (22:55)
[2017-02-12 07:05] VITALS: BP 124/74; PULSE 81; TEMP 98.7
[2017-02-12] MEDS: metFORMIN HCL 500 MG TABLET (FP) PO SCH (07:15)
[2017-02-12] MEDS ORDERED: INSULIN (NOVOLOG) ASPART 100 UNITS/ML 10ML VIAL ONE ×2 (07:17→11:53)
[2017-02-12] MEDS: INSULIN SLIDING SCALE (NOVOLOG) 1 VIAL SQ SCH ×2 (07:20→11:54)
--- NOTE | 2017-02-12 09:27 | DS ---
[facility] Detox Discharge Summary Admission Date: 02/08/17 Discharge Date: 02/12/17 - History Present History: Alcohol Dependence, Cocaine Dependence - Physical Exam Results Vital Signs: Vital Signs Temperature 98.7 F 02/12/17 07:04 Pulse Rate 81 02/12/17 07:04 Respiratory Rate 18 02/12/17 07:04 Blood Pressure 124/74 02/12/17 07:04 O2 Sat by Pulse Oximetry (%) - Treatment Hospital Course: Detox Protocol Followed, Detoxed Safely, Responded well, Discharged Condition Good, Rehab Referral Accepted - Medication Discharge Medications: Ambulatory Orders Aspirin [ASA -] 81 mg PO DAILY #30 tab.chew 09/11/16 Simvastatin [Zocor -] 20 mg PO HS #30 tablet 09/11/16 Insulin Glargine,Hum.rec.anlog [Lantus Solostar PEN -] 30 units SQ HS 02/08/17 Metformin HCl [Glucophage -] 500 mg PO BID 02/08/17 - Diagnosis (1) Alcohol dependence with uncomplicated withdrawal Current Visit: Yes Status: Chronic (2) Nicotine dependence Current Visit: Yes Status: Chronic Qualifiers: Nicotine product type: cigarettes Substance use status: in withdrawal Qualified Code(s): F17.213 - Nicotine dependence, cigarettes, with withdrawal (3) Non compliance w medication regimen Current Visit: Yes Status: Chronic (4) Psoriasis Current Visit: Yes Status: Chronic (5) Type II diabetes mellitus Current Visit: Yes Status: Chronic Qualifiers: Diabetes mellitus complication status: with neurologic complications Diabetes mellitus complication detail: with polyneuropathy Diabetes mellitus intermediate teacher insulin use: with intermediate teacher use Qualified Code(s): E11.42 - Type 2 diabetes mellitus with diabetic polyneuropathy; Z79.4 - intermediate teacher (current) use of insulin (6) CVA (cerebral vascular accident) Current Visit: No Status: Chronic Qualifiers: CVA mechanism: unspecified Qualified Code(s): I63.9 - Cerebral infarction, unspecified (7) Cocaine dependence Current Visit: Yes Status: Chronic Qualifiers: Substance use status: uncomplicated Qualified Code(s): F14.20 - Cocaine dependence, uncomplicated (8) Hypocalcemia Current Visit: No Status: Acute (9) Hypokalemia Current Visit: No Status: Acute (10) S/P tracheoplasty Current Visit: No Status: Resolved (11) Drug-induced mood disorder Current Visit: No Status: Chronic (12) HLD (hyperlipidemia) Current Visit: No Status: Chronic Qualifiers: Hyperlipidemia type: unspecified Qualified Code(s): E78.5 - Hyperlipidemia, unspecified (13) Hypercholesteremia Current Visit: No Status: Chronic (14) Lymphadenopathy, inguinal Current Visit: No Status: Chronic (15) Lymphoma Current Visit: No Status: Chronic (16) Lymphoma involving lung Current Visit: No Status: Chronic (17) Old cerebrovascular accident without late effect Current Visit: No Status: Chronic (18) Syncope Current Visit: No Status: Chronic Qualifiers: Syncope type: unspecified Qualified Code(s): R55 - Syncope and collapse (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
[2017-02-12] MEDS ORDERED: diazePAM 5 MG TABLET PO SCH (10:00)
[2017-02-12] MEDS: ASPIRIN 81 MG CHEWABLE TABLETS PO SCH ×2 (10:55→11:05)
[2017-02-12] MEDS: NICOTINE 7 MG/24 HOURS TOPICAL PATCH TD SCH (10:55)
[2017-02-12] MEDS: PRENATAL VITAMINS W/ FOLIC ACID TABLET (FP) PO SCH ×2 (10:56→11:08)
== END 2017-02-12 12:30 | disposition home or self-care (01) | DRG 774 ==
LOC: YASAS 10:51 → Y6N 14:20
PROVIDERS: ADMIT Internal Medicine; ATTEND Internal Medicine Addiction Medicine
PROC: HZ2ZZZZ Detoxification Services for Substance Abuse Treatment (ICD-10-PCS; principal; 2017-02-12)
DX: F10.230 Alcohol dependence with withdrawal, uncomplicated (principal); F14.20 Cocaine dependence, uncomplicated; F17.210 Nicotine dependence, cigarettes, uncomplicated; F19.24 Other psychoactive substance dependence with psychoactive substance-induced mood disorder; F20.0 Paranoid schizophrenia; F34.1 Dysthymic disorder; G47.00 Insomnia, unspecified; E87.6 Hypokalemia; E83.51 Hypocalcemia; E11.42 Type 2 diabetes mellitus with diabetic polyneuropathy; Z79.4 Long term (current) use of insulin; E78.4 Other hyperlipidemia; E78.5 Hyperlipidemia, unspecified; C85.92 Non-Hodgkin lymphoma, unspecified, intrathoracic lymph nodes; L40.9 Psoriasis, unspecified; Z91.14 Patient's other noncompliance with medication regimen
CPT/HCPCS: 36415; 80053; 81003; 85027; 86593; 87389; 93005; 93010

== ENCOUNTER 2017-03-30 23:42 | Emergency (ER) | payer SELFPAY ==
--- NOTE | 2017-03-31 00:54 | PDOC ---
History of Present Illness - History of Present Illness Initial Comments: 03/31/17 01:00 The patient is a 51 year old male, with a significant past medical history of hypertension, hyperlipidemia, diabetes, pelvic lymphoma, and CVA (2009), who presents to the emergency department with weakness to his left lower extremity today. He states his left leg gave out from under him today causing him to fall. He reports catching his fall and denies any head trauma or other injury. He denies numbness or tingling in his left lower extremity. He denies loss of consciousness. He reports he is supposed to start chemotherapy at [facility] soon, but denies starting yet. He denies recent travels or sick contacts. He denies chest pain, shortness of breath, headache and dizziness. He denies fever, chills, nausea, vomit, diarrhea and constipation. He denies dysuria, frequency, urgency and hematuria. Allergies: Chlordiazepoxide HCl Past surgical history: none reported. Social history: former tobacco use. ETOH and cocaine abuse. PCP - Dr. Jaswinder Tadeo Oncologist - Dr. Singh <Erica Prieto - Last Filed: 03/31/17 02:11> - General History Source: Patient <Shorty Umanzor - Last Filed: 03/31/17 06:22> - General Chief Complaint: Injury Stated Complaint: LEG PAIN Time Seen by Provider: 03/31/17 00:50 Past History <Erica Prieto - Last Filed: 03/31/17 02:11> - Past Medical History Anemia: No Asthma: No Cancer: Yes (Hodgkin's lymphoma, Tx. with radiation is pending.) Cardiac Disorders: No CVA: Yes (right sided CVA 2009) COPD: No CHF: No Dementia: No Diabetes: Yes (metformin/ lantus) GI Disorders: No Disorders: No HTN: No Hypercholesterolemia: Yes Kidney Stones: No Liver Disease: No Suicide Attempt (Hx): No Seizures: Yes (many yrs. ago) Thyroid Disease: No - Surgical History Abdominal Surgery: No Appendectomy: No Cardiac Surgery: No Cholecystectomy: No Lung Surgery: No Neurologic Surgery: No Orthopedic Surgery: No - Reproductive History Testicular Surgery: No - Immunization History Immunization Up to Date: Yes - Psycho/Social/Smoking Cessation Hx Anxiety: No Suicidal Ideation: No Smoking Status: No Smoking History: Current some day smoker Have you smoked in the past 12 months: Yes Number of Cigarettes Smoked Daily: 1 If you are a former smoker, when did you quit?: 2 MONTHS AGO Cigars Per Day: 0 Information on smoking cessation initiated: No 'Breaking Loose' booklet given: 02/08/17 Hx Alcohol Use: No Drug/Substance Use Hx: No Substance Use Type: None Hx Substance Use Treatment: Yes (Detox) <Shorty Umanzor - Last Filed: 03/31/17 06:22> - Past Medical History Allergies/Adverse Reactions: Allergies Allergy/AdvReac Type Severity Reaction Status Date / Time chlordiazepoxide HCl Allergy Nausea Verified 02/08/17 14:34 [From Librium] Home Medications: Ambulatory Orders Aspirin [ASA -] 81 mg PO DAILY #30 tab.chew 09/11/16 Insulin Glargine,Hum.rec.anlog [Lantus Solostar PEN -] 50 units SQ HS 02/08/17 Metformin HCl [Glucophage -] 500 mg PO AM 02/08/17 Review of Systems - Review of Systems Able to Perform ROS?: Yes Comments:: 03/31/17 01:00 CONSTITUTIONAL: Absent: fever, chills, diaphoresis, generalized weakness, malaise, loss of appetite HEENT: Absent: rhinorrhea, nasal congestion, throat pain, throat swelling, difficulty swallowing, mouth swelling, ear pain, eye pain, visual Changes CARDIOVASCULAR: Absent: chest pain, syncope, palpitations, irregular heart rate, lightheadedness , peripheral edema RESPIRATORY: Absent: cough, shortness of breath, dyspnea with exertion, orthopnea, wheezing, stridor, hemoptysis GASTROINTESTINAL: Absent: abdominal pain, abdominal distension, nausea, vomiting, diarrhea, constipation, melena, hematochezia GENITOURINARY: Absent: dysuria, frequency, urgency, hesitancy, hematuria, flank pain, genital pain MUSCULOSKELETAL: (+) left lower extremity weakness. Absent: myalgia, arthralgia, joint swelling SKIN: Absent: rash, itching, pallor HEMATOLOGIC/IMMUNOLOGIC: Absent: easy bleeding, easy bruising, lymphadenopathy, frequent infections ENDOCRINE: Absent: unexplained weight gain, unexplained weight loss, heat intolerance, cold intolerance NEUROLOGIC: Absent: headache, focal weakness or paresthesias, dizziness, unsteady gait, seizure, mental status changes, bladder or bowel incontinence PSYCHIATRIC: Absent: anxiety, depression, suicidal or homicidal ideation, hallucinations. <Erica Prieto - Last Filed: 03/31/17 02:11> *Physical Exam - Vital Signs Last Vital Signs Temp Pulse Resp BP Pulse Ox 98.3 F 82 16 146/73 95 03/31/17 00:43 03/31/17 00:43 03/31/17 00:43 03/31/17 00:43 03/31/17 00:43 - Physical Exam Comments: 03/31/17 01:01 GENERAL: Well developed, well nourished. Awake and alert. No acute distress. HEENT: Normocephalic, atraumatic. PERRLA, EOMI. No conjunctival pallor. Sclera are non- icteric. Moist mucous membranes. Oropharynx is clear. NECK: Supple. Full ROM. No JVD. Carotid pulses 2+ and symmetric, without bruits. No thyromegaly. No lymphadenopathy. CARDIOVASCULAR: Regular rate and rhythm. No murmurs, rubs, or gallops. Distal pulses are 2+ and symmetric. PULMONARY: No evidence of respiratory distress. Lungs clear to auscultation bilaterally. No wheezing, rales or rhonchi. ABDOMINAL: Soft. Non-tender. Non-distended. No rebound or guarding. No organomegaly. Normoactive bowel sounds. MUSCULOSKELETAL Normal range of motion at all joints. No bony deformities or tenderness. No CVA tenderness. EXTREMITIES: LLE: (+) firm, 10cm, nonmobile. nontender/nonerythematous mass in left groin. Remainder ofl eft lower extremity is non-tender/non-erythematous/non-edematous. No cyanosis. No clubbing. No edema. No calf tenderness. Muscle Strength is 4+/5. [remainder of extremities are normal. No cyanosis. No clubbing. No edema. No calf tenderness. MS 5/5] SKIN: Warm and dry. Normal capillary refill. No rashes. No jaundice. NEUROLOGICAL: Alert, awake, appropriate. Cranial nerves 2-12 intact. Normoreflexic in the upper and lower extremities. Normal speech. Toes are down-going bilaterally. Gait is normal without ataxia. PSYCHIATRIC: Cooperative. Good eye contact. Appropriate mood and affect. <Erica Prieto - Last Filed: 03/31/17 02:11> - Vital Signs Last Vital Signs Temp Pulse Resp BP Pulse Ox 98.3 F 82 16 146/73 95 03/31/17 00:43 03/31/17 00:43 03/31/17 00:43 03/31/17 00:43 03/31/17 00:43 <Shorty Umanzor - Last Filed: 03/31/17 06:22> ED Treatment Course - LABORATORY CBC & Chemistry Diagram: 03/31/17 01:10 03/31/17 01:10 - RADIOLOGY Radiograph Interpretation: 03/31/17 02:12 Exam: Left lower surety venous duplex was read by Seamus Perla M.D. 2016 02:03 EST Images: 24 Clinical indication: Rule out DVT. Findings: The common femoral, femoral, popliteal, peroneal, and posterior tibial veins were examined bilaterally using slater scale, color, and Doppler venous imaging. All levels exhibited normal compressibility, color signal, and Doppler venous wave forms. No filling defects were identified. A complex collection in the right groin measures up to 6.8 x 4.6 x 7 cm in diameter and demonstrates vascularity. This may represent a pathologic enlarged lymph node. Impression: Bilateral lower extremity venous duplex negative for deep venous thrombosis. <Erica Prieto - Last Filed: 03/31/17 02:11> - LABORATORY CBC & Chemistry Diagram: 03/31/17 01:10 03/31/17 01:10 <Shorty Umanzor - Last Filed: 03/31/17 06:22> Medical Decision Making - Medical Decision Making 03/31/17 06:17 Dr. Umanzor: The scribe's documentation has been prepared under my direction and personally reviewed by me in its entirery. I confirm that the note above accurately reflects all work, treatment, procedures, and medical decision making performed by me. Pt labs are all stable. Hemodynamically stable. Pt to follow up with his doctor. <Shorty Umanzor - Last Filed: 03/31/17 06:22> *DC/Admit/Observation/Transfer - Attestations Scribe Attestion: 03/31/17 01:03 Documentation prepared by Erica Prieto, acting as medical doctor md for Shorty Umanzor DO <Erica Prieto - Last Filed: 03/31/17 02:11> - Discharge Dispostion Admit: No <Shorty Umanzor - Last Filed: 03/31/17 06:22> Diagnosis at time of Disposition: Musculoskeletal pain - Discharge Dispostion Disposition: HOME Condition at time of disposition: Stable - Patient Instructions Printed Discharge Instructions: DI for Musculoskeletal Pain Additional Instructions: Please follow up with your doctors to start your treatment. Take all your usual medications
[2017-03-31 01:15] LABS: BASOPHIL 0.6 % (0-2.0); EOSINOPHIL 5.3 % (0-4.5); MCH 28.8 pg (25.7-33.7); MCHC 32.7 g/dl (32.0-35.9); MEAN CELL VOLUME 88.1 fl (80-96); MEAN PLT VOLUME 8.5 fl (7.5-11.1); NEUTROPHILS 48.2 % (42.8-82.8); PLATELET COUNT 195 K/MM3 (134-434); RDW 14.5 % (11.9-15.9)
[2017-03-31 01:16] VITALS: BP 146/73; PULSE 82; TEMP 98.3; BMI 29.9
[2017-03-31 01:30] LABS: INR 1.03 (0.82-1.09); PROTHROMBIN TIME (PATIENT) 11.3 SEC (9.98-11.88)
[2017-03-31 01:37] LABS: ALBUMIN 3.6 g/dl (3.4-5.0); ANION GAP 12 (8-16); BILIRUBIN,TOTAL 0.3 mg/dL (0.2-1.0); CALCIUM 8.7 mg/dL (8.5-10.1); CO2 25 mmol/L (21-32); COCKROFT - GAULT 127.57; CREATININE 0.8 mg/dL (0.7-1.3); GLUCOSE,RANDOM 208 mg/dL (74-106); MAGNESIUM 2.1 mg/dL (1.8-2.4); SGOT/AST 20 U/L (15-37); SGPT/ALT 33 U/L (12-78); TOT PROT 6.5 g/dl (6.4-8.2)
[2017-03-31 01:40] LABS: ALK PHOS 104 U/L (45-117)
== END 2017-03-31 06:32 | disposition home or self-care (01) ==
LOC: JER 23:42
DX: M62.81 Muscle weakness (generalized) (principal); C81.7 Other Hodgkin lymphoma; E78.5 Hyperlipidemia, unspecified; E11.9 Type 2 diabetes mellitus without complications; Z79.4 Long term (current) use of insulin; Z79.84 Long term (current) use of oral hypoglycemic drugs; Z86.73 Personal history of transient ischemic attack (TIA), and cerebral infarction without residual deficits; W19.XXXA Unspecified fall, initial encounter; Y93.89 Activity, other specified; Y92.89 Other specified places as the place of occurrence of the external cause; Z86.69 Personal history of other diseases of the nervous system and sense organs
CPT/HCPCS: 36415; 80053; 83735; 83880; 85025; 85610; 86850; 86900; 86901; 93971-TC; 99283-25

== ENCOUNTER 2017-07-11 15:22 | Inpatient (IN) | payer OTHER ==
[2017-07-11] MEDS ORDERED: ACETAMINOPHEN 325 MG TABLET (FP) PO PRN (15:30)
[2017-07-11] MEDS ORDERED: MAGNESIUM HYDROX 2400MG/30ML ORAL SUSPENSION 30 ML CUP PO PRN (15:30)
[2017-07-11] MEDS ORDERED: diphenhydrAMINE HCL 50 MG CAPSULE PO PRN (15:30)
[2017-07-11] MEDS ORDERED: MAGNESIUM CITRATE 300 ML BOTTLE PO PRN (15:30)
[2017-07-11] MEDS ORDERED: diazePAM 5 MG TABLET PO PRN (15:30)
[2017-07-11] MEDS ORDERED: hydrOXYzine PAMOATE 50 MG CAPSULE (FP) PO PRN (15:30)
[2017-07-11] MEDS ORDERED: MENTHOL/PHENOL 1 EACH UD MM PRN (15:30)
[2017-07-11] MEDS ORDERED: diazePAM 5 MG TABLET PO ONE (15:30)
[2017-07-11] MEDS ORDERED: P-EPHED 60MG/TRIPROLIDI 2.5MG TABLET PO PRN (15:30)
[2017-07-11] MEDS ORDERED: LOPERAMIDE HCL 2 MG CAPSULE PO PRN (15:30)
[2017-07-11] MEDS ORDERED: MAG HYDROX/AL HYDROX/SIMETH 30 ML UNIT-DOSE CUP PO PRN (15:30)
[2017-07-11] MEDS ORDERED: guaiFENesin/D-METHORPHAN HB 10 ML UNIT-DOSE CUPS PO PRN (15:30)
--- NOTE | 2017-07-11 15:30 | HP ---
CIWA Score - CIWA Score Nausea/Vomitin-Mild Nausea/No Vomiting Muscle Tremors: 4-Moderate,w/Arms Extend Anxiety: 4-Mod. Anxious/Guarded Agitation: 1-Slight > Activity Paroxysmal Sweats: 1-Minimal Palms Moist Orientation: 1-Uncertain about Date Tacttile Disturbances: 1-Very Mild Itch/Numbness Auditory Disturbances: 1-Very Mild Visual Disturbances: 1-Very Mild Sensitivity Headache: 1-Very Mild CIWA-Ar Total Score: 16 Admission ROS S - HPI Chief Complaint: I want to stop drinking Allergies/Adverse Reactions: Allergies Allergy/AdvReac Type Severity Reaction Status Date / Time chlordiazepoxide HCl Allergy Nausea Verified 02/08/17 14:34 [From Librium] History of Present Illness: 51 yo gentleman here for detox from alcohol - one of many admissions for detox - no seizures. Exam Limitations: Clinical Condition - Ebola screening Have you traveled outside of the country in the last 21 days: No Have you had contact with anyone from an Ebola affected area: No Do you have a fever: No - Review of Systems Constitutional: Loss of Appetite, Changes in sleep EENT: reports: Blurred Vision Respiratory: reports: No Symptoms reported Cardiac: reports: No Symptoms Reported GI: reports: Poor Appetite, Abdominal cramping : reports: Frequency Musculoskeletal: reports: Back Pain Integumentary: reports: No Symptoms Reported, Other (itchy scalp) Neuro: reports: Headache, Tremors Endocrine: reports: No Symptoms Reported Hematology: reports: No Symptoms Reported Psychiatric: reports: Judgement Intact, Mood/Affect Appropiate, Orientated x3, Anxious Other Systems: Reviewed and Negative Patient History - Patient Medical History Hx Anemia: No Hx Asthma: No Hx Chronic Obstructive Pulmonary Disease (COPD): No Hx Cancer: Yes (Hodgkin's lymphoma, Tx. with radiation is pending.) Hx Cardiac Disorders: No Hx Congestive Heart Failure: No Hx Hypertension: No Hx Hypercholesterolemia: Yes Hx Pacemaker: No HX Cerebrovascular Accident: Yes (right sided CVA 2009) Hx Seizures: Yes (many yrs. ago) Hx Dementia: No Hx Diabetes: Yes (metformin/ lantus) Hx Gastrointestinal Disorders: No Hx Liver Disease: No Hx Genitourinary Disorders: No Hx Sexually Transmitted Disorders: No Hx Renal Disease (ESRD): No Hx Thyroid Disease: No Hx Human Immunodeficiency Virus (HIV): No Hx Hepatitis C: No Hx Depression: No Hx Suicide Attempt: No Hx Bipolar Disorder: No Hx Schizophrenia: Yes - Patient Surgical History Past Surgical History: Yes Hx Neurologic Surgery: No Hx Cataract Extraction: No Hx Cardiac Surgery: No Hx Lung Surgery: No Hx Breast Surgery: No Hx Breast Biopsy: No Hx Abdominal Surgery: No Hx Appendectomy: No Hx Cholecystectomy: No Hx Genitourinary Surgery: No Hx Section: No Hx Orthopedic Surgery: No Other Surgical History: TRACHEOSPLASTY AT AGE 3, biopsy of lymph node Anesthesia Reaction: No - PPD History Date: 01/05/17 Results: 0 mm - Reproductive History Patient is a Female of Child Bearing Age (11 -55 yrs old): No (male) - Smoking Cessation Smoking history: Current some day smoker Have you smoked in the past 12 months: Yes Aproximately how many cigarettes per day: 2 Cigars Per Day: 0 Hx Chewing Tobacco Use: No Initiated information on smoking cessation: Yes 'Breaking Loose' booklet given: 07/11/17 (give on floor) - Substance & Tx. History Hx Alcohol Use: Yes Hx Substance Use: No Substance Use Type: Alcohol Hx Substance Use Treatment: Yes (detox, rehab) - Substances Abused Alcohol Route: Oral Frequency: Daily Amount used: three 40oz beer Age of first use: 15 Date of Last Use: 07/10/17 Family Disease History - Family Disease History Family Disease History: Diabetes: Father (living), Heart Disease: Mother (living , HTN), CA: Grandparent (BREAST), Other: Brother (2 - living, healthy), Sister (2- living - healthy) Admission Physical Exam [facility] - Vital Signs Vital Signs: 123/90, Pulse 95, R 20, T 97 - Physical General Appearance: Yes: Nourished, Appropriately Dressed, Mild Distress, Irritable, Anxious HEENTM: Yes: Hearing grossly Normal, Normocephalic, Normal Voice Respiratory: Yes: Normal Breath Sounds, No Respiratory Distress Neck: Yes: No masses,lesions,Nodules, Supple Breast: Yes: Breast Exam Deferred Cardiology: Yes: Regular Rhythm, Regular Rate Abdominal: Yes: Soft Genitourinary: Yes: Frequency Back: Yes: Normal Inspection Musculoskeletal: Yes: full range of Motion, Gait Steady Extremities: Yes: Normal Inspection, Non-Tender Neurological: Yes: Fully Oriented, Alert, Normal Mood/Affect, Normal Response Integumentary: Yes: Normal Color, Dry, Warm Lymphatic: Yes: Within Normal Limits - Diagnostic (1) Alcohol dependence with uncomplicated withdrawal Current Visit: Yes Status: Chronic (2) Old cerebrovascular accident without late effect Current Visit: Yes Status: Chronic Comment: . (3) Psoriasis Current Visit: Yes Status: Chronic Comment: SCALP (4) Diabetes mellitus with insulin therapy Current Visit: Yes Status: Chronic Cleared for Admission [facility] - Detox or Rehab [facility] Level of Care: Medically Managed Detox Regimen/Protocol: Valium S Breath Alcohol Content Breath Alcohol Content: 0
[2017-07-11 15:57] VITALS: BMI 28.3
[2017-07-11] MEDS ORDERED: INSULIN (NOVOLOG) ASPART 100 UNITS/ML 10ML VIAL ONE ×2 (16:54→21:34)
[2017-07-11] MEDS: ASPIRIN COATED 81 MG TABLET.EC PO SCH (16:55)
[2017-07-11] MEDS: INSULIN SLIDING SCALE (NOVOLOG) 1 VIAL SQ SCH ×2 (16:55→22:14)
[2017-07-11 17:33] LABS: URINE APPEARANCE CLEAR; URINE BILIRUBIN NEGATIVE (NEGATIVE); URINE BLOOD NEGATIVE (NEGATIVE); URINE COLOR YELLOW; URINE GLUCOSE (UA) 3+ (NEGATIVE); URINE KETONE NEGATIVE (NEGATIVE); URINE LEUK ESTERASE NEGATIVE (NEGATIVE); URINE NITRITE NEGATIVE (NEGATIVE); URINE PROTEIN NEGATIVE (NEGATIVE); URINE UROBILINOGEN NEGATIVE mg/dL (0.2-1.0)
[2017-07-11] MEDS: diazePAM 5 MG TABLET PO SCH (22:13)
[2017-07-11] MEDS: THIAMINE HCL 100 MG TABLET (FP) PO SCH (22:13)
[2017-07-11] MEDS: ATORVASTATIN CA 40 MG TABLET (FP) PO SCH (22:13)
[2017-07-11] MEDS: INSULIN DETEMIR 100 UNITS/ML MDV SQ SCH (22:14)
[2017-07-12] MEDS ORDERED: INSULIN (NOVOLOG) ASPART 100 UNITS/ML 10ML VIAL ONE ×4 (05:32→22:13)
[2017-07-12] MEDS: diazePAM 5 MG TABLET PO SCH ×3 (05:35→22:14)
[2017-07-12] MEDS: INSULIN SLIDING SCALE (NOVOLOG) 1 VIAL SQ SCH ×4 (07:45→22:15)
[2017-07-12] MEDS ORDERED: PRENATAL VITAMINS W/ FOLIC ACID TABLET (FP) PO SCH (10:00)
[2017-07-12 10:29] LABS: ALBUMIN 3.5 g/dl (3.4-5.0); ANION GAP 9 (8-16); BILIRUBIN,TOTAL 0.3 mg/dL (0.2-1.0); CALCIUM 8.8 mg/dL (8.5-10.1); CO2 27 mmol/L (21-32); CREATININE 0.7 mg/dL (0.7-1.3); GLUCOSE,RANDOM 191 mg/dL (74-106); SGOT/AST 16 U/L (15-37); SGPT/ALT 29 U/L (12-78); TOT PROT 6.2 g/dl (6.4-8.2)
[2017-07-12 10:30] LABS: ALK PHOS 103 U/L (45-117)
[2017-07-12] MEDS: ASPIRIN COATED 81 MG TABLET.EC PO SCH (10:30)
[2017-07-12 10:49] LABS: MCH 28.9 pg (25.7-33.7); MCHC 32.3 g/dl (32.0-35.9); MEAN CELL VOLUME 89.3 fl (80-96); PLATELET COUNT 171 K/MM3 (134-434); WHITE BLOOD COUNT 4.8 K/mm3 (4.0-10.0)
--- NOTE | 2017-07-12 13:56 | EKG ---
Test Reason : Blood Pressure : / mmHG Vent. Rate : 084 BPM Atrial Rate : 084 BPM P-R Int : 142 ms QRS Dur : 104 ms QT Int : 384 ms P-R-T Axes : 044 -18 031 degrees QTc Int : 453 ms NORMAL SINUS RHYTHM MINIMAL VOLTAGE CRITERIA FOR LVH, MAY BE NORMAL VARIANT BORDERLINE ECG WHEN COMPARED WITH ECG OF 08-FEB-2017 15:32, NO SIGNIFICANT CHANGE WAS FOUND Confirmed by SEDRICK GALARZA, ASHA ([id number]) on 07/12/2017 1:55:49 PM Referred By: Confirmed By:ASHA DUBOSE MD
--- NOTE | 2017-07-12 14:39 | PN ---
[facility] CIWA - CIWA Score Nausea/Vomitin-Mild Nausea/No Vomiting Muscle Tremors: 4-Moderate,w/Arms Extend Anxiety: 4-Mod. Anxious/Guarded Agitation: 3 Paroxysmal Sweats: 3 Orientation: 0-Oriented Tacttile Disturbances: 1-Very Mild Itch/Numbness Auditory Disturbances: 0-None Visual Disturbances: 0-None Headache: 1-Very Mild CIWA-Ar Total Score: 17 [facility] Progress Note (SOAP) Subjective: Sweating,interrupted sleep,restless Objective: 07/12/17 14:37 Vital Signs - 8 hr 07/12/17 07/12/17 10:00 14:29 Temperature 96.4 F L 98.1 F Pulse Rate 85 99 H Respiratory 20 18 Rate Blood Pressure 144/89 143/87 Laboratory Last Values WBC 4.8 K/mm3 (4.0-10.0) 07/12/17 08:00 RBC 4.95 M/mm3 (4.00-5.60) 07/12/17 08:00 Hgb 14.3 GM/dL (11.7-16.9) 07/12/17 08:00 Hct 44.2 % (35.4-49) 07/12/17 08:00 MCV 89.3 fl (80-96) 07/12/17 08:00 MCH 28.9 pg (25.7-33.7) 07/12/17 08:00 MCHC 32.3 g/dl (32.0-35.9) 07/12/17 08:00 RDW 15.0 % (11.9-15.9) 07/12/17 08:00 Plt Count 171 K/MM3 (134-434) 07/12/17 08:00 MPV 9.0 fl (7.5-11.1) 07/12/17 08:00 Sodium 139 mmol/L (136-145) 07/12/17 08:00 Potassium 4.0 mmol/L (3.5-5.1) 07/12/17 08:00 Chloride 103 mmol/L (98-107) 07/12/17 08:00 Carbon Dioxide 27 mmol/L (21-32) 07/12/17 08:00 Anion Gap 9 (8-16) 07/12/17 08:00 BUN 24 mg/dL (7-18) H D 07/12/17 08:00 Creatinine 0.7 mg/dL (0.7-1.3) 07/12/17 08:00 Creat Clearance w eGFR > 60 (>60) 07/12/17 08:00 POC Glucometer 407 UNITS (()) 07/12/17 11:46 Random Glucose 191 mg/dL (74-106) H 07/12/17 08:00 Calcium 8.8 mg/dL (8.5-10.1) 07/12/17 08:00 Total Bilirubin 0.3 mg/dL (0.2-1.0) 07/12/17 08:00 AST 16 U/L (15-37) 07/12/17 08:00 ALT 29 U/L (12-78) 07/12/17 08:00 Alkaline Phosphatase 103 U/L (45-117) 07/12/17 08:00 Total Protein 6.2 g/dl (6.4-8.2) L 07/12/17 08:00 Albumin 3.5 g/dl (3.4-5.0) 07/12/17 08:00 Urine Color Yellow 07/11/17 15:59 Urine Appearance Clear 07/11/17 15:59 Urine pH 5.0 (5.0-8.0) 07/11/17 15:59 Ur Specific [place] 1.025 (1.005-1.025) 07/11/17 15:59 Urine Protein Negative (NEGATIVE) 07/11/17 15:59 Urine Glucose (UA) 3+ (NEGATIVE) H 07/11/17 15:59 Urine Ketones Negative (NEGATIVE) 07/11/17 15:59 Urine Blood Negative (NEGATIVE) 07/11/17 15:59 Urine Nitrite Negative (NEGATIVE) 07/11/17 15:59 Urine Bilirubin Negative (NEGATIVE) 07/11/17 15:59 Urine Urobilinogen Negative mg/dL (0.2-1.0) 07/11/17 15:59 Ur Leukocyte Esterase Negative (NEGATIVE) 07/11/17 15:59 RPR Titer Nonreactive (NONREACTIVE) 07/12/17 08:00 labs noted Assessment: 07/12/17 14:38 Withdrawal sx. Plan: Continue detox
[2017-07-12] MEDS: ATORVASTATIN CA 40 MG TABLET (FP) PO SCH (22:14)
[2017-07-12] MEDS: THIAMINE HCL 100 MG TABLET (FP) PO SCH (22:14)
[2017-07-12] MEDS: INSULIN DETEMIR 100 UNITS/ML MDV SQ SCH (22:15)
[2017-07-13 06:23] VITALS: BP 109/61; PULSE 85; TEMP 98.2
[2017-07-13] MEDS: INSULIN SLIDING SCALE (NOVOLOG) 1 VIAL SQ SCH (08:38)
--- NOTE | 2017-07-13 09:07 | PN ---
[facility] CIWA - CIWA Score Nausea/Vomitin Muscle Tremors: 3 Anxiety: 2 Agitation: 3 Paroxysmal Sweats: 1-Minimal Palms Moist Orientation: 0-Oriented Tacttile Disturbances: 1-Very Mild Itch/Numbness Auditory Disturbances: 1-Very Mild Visual Disturbances: 1-Very Mild Sensitivity Headache: 2-Mild CIWA-Ar Total Score: 17 [facility] Progress Note (SOAP) Subjective: ALERT,IRRIRABLE ,ANXIOUS,INTERRUPTED SLEEP,TREMOR Objective: 07/13/17 09:10 Vital Signs Temperature 98.2 F 07/13/17 06:00 Pulse Rate 85 07/13/17 06:00 Respiratory Rate 18 07/13/17 06:00 Blood Pressure 109/61 07/13/17 06:00 O2 Sat by Pulse Oximetry (%) Laboratory Last Values WBC 4.8 K/mm3 (4.0-10.0) 07/12/17 08:00 RBC 4.95 M/mm3 (4.00-5.60) 07/12/17 08:00 Hgb 14.3 GM/dL (11.7-16.9) 07/12/17 08:00 Hct 44.2 % (35.4-49) 07/12/17 08:00 MCV 89.3 fl (80-96) 07/12/17 08:00 MCH 28.9 pg (25.7-33.7) 07/12/17 08:00 MCHC 32.3 g/dl (32.0-35.9) 07/12/17 08:00 RDW 15.0 % (11.9-15.9) 07/12/17 08:00 Plt Count 171 K/MM3 (134-434) 07/12/17 08:00 MPV 9.0 fl (7.5-11.1) 07/12/17 08:00 Sodium 139 mmol/L (136-145) 07/12/17 08:00 Potassium 4.0 mmol/L (3.5-5.1) 07/12/17 08:00 Chloride 103 mmol/L (98-107) 07/12/17 08:00 Carbon Dioxide 27 mmol/L (21-32) 07/12/17 08:00 Anion Gap 9 (8-16) 07/12/17 08:00 BUN 24 mg/dL (7-18) H D 07/12/17 08:00 Creatinine 0.7 mg/dL (0.7-1.3) 07/12/17 08:00 Creat Clearance w eGFR > 60 (>60) 07/12/17 08:00 POC Glucometer 135 UNITS (()) 07/13/17 05:57 Random Glucose 191 mg/dL (74-106) H 07/12/17 08:00 Calcium 8.8 mg/dL (8.5-10.1) 07/12/17 08:00 Total Bilirubin 0.3 mg/dL (0.2-1.0) 07/12/17 08:00 AST 16 U/L (15-37) 07/12/17 08:00 ALT 29 U/L (12-78) 07/12/17 08:00 Alkaline Phosphatase 103 U/L (45-117) 07/12/17 08:00 Total Protein 6.2 g/dl (6.4-8.2) L 07/12/17 08:00 Albumin 3.5 g/dl (3.4-5.0) 07/12/17 08:00 Urine Color Yellow 07/11/17 15:59 Urine Appearance Clear 07/11/17 15:59 Urine pH 5.0 (5.0-8.0) 07/11/17 15:59 Ur Specific [place] 1.025 (1.005-1.025) 07/11/17 15:59 Urine Protein Negative (NEGATIVE) 07/11/17 15:59 Urine Glucose (UA) 3+ (NEGATIVE) H 07/11/17 15:59 Urine Ketones Negative (NEGATIVE) 07/11/17 15:59 Urine Blood Negative (NEGATIVE) 07/11/17 15:59 Urine Nitrite Negative (NEGATIVE) 07/11/17 15:59 Urine Bilirubin Negative (NEGATIVE) 07/11/17 15:59 Urine Urobilinogen Negative mg/dL (0.2-1.0) 07/11/17 15:59 Ur Leukocyte Esterase Negative (NEGATIVE) 07/11/17 15:59 RPR Titer Nonreactive (NONREACTIVE) 07/12/17 08:00 Assessment: 07/13/17 09:10 WITHDRAWAL SYMPTOM Plan: CONTINUE DETOX,BGM MONITORING
--- NOTE | 2017-07-13 09:13 | PN ---
[facility] Progress Note Note: PATIENT DID NOT WANT TO COMPLETE TREATMENT,SIGNED RELEASE AMA,STATED HE HAS PERSONAL BUSINESS TO TAKE CARE TODAY,SEEN BY COUNSELOR
--- NOTE | 2017-07-13 09:15 | DS ---
[facility] Detox Discharge Summary Admission Date: 07/11/17 Discharge Date: 07/13/17 - History Pertinent Past History: IDDM OLD CVA PSORIASIS - Physical Exam Results Vital Signs: Vital Signs Temperature 98.2 F 07/13/17 06:00 Pulse Rate 85 07/13/17 06:00 Respiratory Rate 18 07/13/17 06:00 Blood Pressure 109/61 07/13/17 06:00 O2 Sat by Pulse Oximetry (%) Pertinent Admission Physical Exam Findings: WITHDRAWAL FINDING - Medication Discharge Medications: Ambulatory Orders Aspirin [ASA -] 81 mg PO DAILY 07/11/17 Insulin Glargine,Hum.rec.anlog [Lantus Solostar PEN (NF)] 50 units SQ HS Metformin HCl [Glucophage -] 500 mg PO BID 07/11/17 Simvastatin [Zocor -] 40 mg PO HS 07/11/17 - AMA Did Patient Leave Against Medical Advice: Yes (HIS PERSONAL BUSINESS TO BE DONE TODAY)
[2017-07-13] MEDS ORDERED: diazePAM 5 MG TABLET PO SCH (10:00)
--- NOTE | 2017-07-13 10:19 | CONSULT ---
[facility] Psychiatric Consult - Data Date of interview: 07/13/17 Admission source: [facility] Identifying data: This is 51 years old male with history of Schizoaffective disorder, unclear past psychiatric hospitalization hbistory, intoxicated with: Alcohol, Nicotine Substance Abuse History: Observation. Detox [facility] Care Protocol Medical History: Hisotry of CVA, Hypocalcemia, hypokalemia history, Hyperlipidemia history, , Hypecholesterolemia history, Lymphoma history Psychiatric History: As cper computer patient suffers with Schizphrenia, reports uncleat past psychiatric hospitalization history, reports no medicatoipjns taking prior to admission Physical/Sexual Abuse/Trauma History: Denies Additional Comment: Observation. Detox [facility] Care Protocol Mental Status Exam - Mental Status Exam Alert and Oriented to: Person Cognitive Function: Fair Patient Appearance: Unkempt Mood: Suspicious Affect: Mood Congruent Patient Behavior: Cooperative Speech Pattern: Appropriate Voice Loudness: Normal Thought Process: Circumstantial Thought Disorder: Being Controlled Hallucinations: Denies Suicidal Ideation: Denies Homicidal Ideation: Denies Insight/Judgement: Fair Sleep: Difficulty falling asleep Appetite: Weight gain Muscle strength/Tone: Normal Gait/Station: Normal Additional Comments: Observation. Detox [facility] Care Protocol Psychiatric Findings - Problem List ([place] 1, 2,3) (1) Alcohol dependence with uncomplicated withdrawal Status: Chronic (2) Old cerebrovascular accident without late effect Status: Chronic Comment: . (3) Drug-induced mood disorder Status: Chronic (4) Nicotine dependence Status: Chronic Qualifiers: Nicotine product type: cigarettes Substance use status: in withdrawal Qualified Code(s): F17.213 - Nicotine dependence, cigarettes, with withdrawal Comment: . (5) Non compliance w medication regimen Status: Chronic (6) Paranoid schizophrenia Status: Suspected Comment: Historical diagnosis. - Initial Treatment Plan Initial Treatment Plan: Observation. Detox [facility] Care Protocol
[2017-07-15] MEDS ORDERED: diazePAM 5 MG TABLET PO SCH (10:00)
== END 2017-07-13 09:22 | disposition left against medical advice (07) | DRG 770 ==
LOC: YASAS 15:22 → Y6N 15:45
PROVIDERS: ADMIT Internal Medicine; ATTEND Internal Medicine
PROC: HZ2ZZZZ Detoxification Services for Substance Abuse Treatment (ICD-10-PCS; principal; 2017-07-11)
DX: F10.230 Alcohol dependence with withdrawal, uncomplicated (principal); F17.210 Nicotine dependence, cigarettes, uncomplicated; F19.24 Other psychoactive substance dependence with psychoactive substance-induced mood disorder; F20.0 Paranoid schizophrenia; E78.00 Pure hypercholesterolemia, unspecified; E11.42 Type 2 diabetes mellitus with diabetic polyneuropathy; L40.9 Psoriasis, unspecified; Z91.14 Patient's other noncompliance with medication regimen; Z79.4 Long term (current) use of insulin; Z86.73 Personal history of transient ischemic attack (TIA), and cerebral infarction without residual deficits; Z79.82 Long term (current) use of aspirin; Z79.84 Long term (current) use of oral hypoglycemic drugs; Z86.69 Personal history of other diseases of the nervous system and sense organs; Z88.8 Allergy status to other drugs, medicaments and biological substances; Z85.71 Personal history of Hodgkin lymphoma
CPT/HCPCS: 36415; 80053; 81003; 85027; 86593; 93005; 93010

== ENCOUNTER 2017-11-11 23:57 | Emergency (ER) | payer OTHER ==
[2017-11-12 00:17] VITALS: BP 123/84; PULSE 87; TEMP 98.8; BMI 29.9
--- NOTE | 2017-11-12 00:36 | PDOC ---
Attending Attestation - HPI HPI: 11/12/17 00:42 The patient is a 51 year old male, with a significant past medical history of hypertension, hyperlipidemia, diabetes, pelvic lymphoma, and CVA (2009), who presents to the emergency department with 1.5 weeks of left eye redness, discharge and pain. He reports being seen at [facility] about a week ago where he was reportedly prescribed medication, which the patient denies picking up from his pharmacy. He states his symptoms have not resolved. He reports a sudden onset of a shooting headache last night to the middle of his head which has been intermittent, however, reports the pain now has progressed to his frontal and temporal regions. He denies sick contacts, recent travels, or recent illnesses. Secondarily, the patient reports swelling to his right lower extremity. He denies chest pain, shortness of breath, and dizziness. He denies fever, chills, nausea, vomit, diarrhea and constipation. He denies dysuria, frequency, urgency and hematuria. Allergies: Chlordiazepoxide HCl Past surgical history: none reported. Social history: former tobacco use. ETOH and cocaine abuse. PCP - Dr. Jaswinder Tadeo Oncologist - Dr. Singh - Medical Decision Making 11/12/17 00:42 Documentation prepared by Erica Prieto, acting as biomedical equipment specialist for Shorty Umanzor DO <Erica Prieto - Last Filed: 11/12/17 00:49> - Resident Resident Name: Ramila Nino - ED Attending Attestation I have performed the following: I have examined & evaluated the patient, The case was reviewed & discussed with the resident, I agree w/resident's findings & plan, Exceptions are as noted - Physicial Exam PE: 11/12/17 00:50 *Physical Exam General Appearance: Yes: Appropriately Dressed. No: Apparent Distress, Intoxicated HEENT: positive: EOMI, JUSTEN, left eye conjunctival erythema and discharge Normal Voice, TMs Normal, Pharynx Normal. negative: Pale Conjunctivae, Photophobia, Scleral Icterus (R), Scleral Icterus (L) Neck: positive: Trachea midline, Normal Thyroid, Supple. negative: Tender, Rigid, Carotid bruit, Stridor, Lymphadenopathy (R), Lymphadenopathy (L), Thyromegaly Respiratory/Chest: positive: Lungs Clear, Normal Breath Sounds. negative: Chest Tender, Respiratory Distress, Accessory Muscle Use, Labored Respiration, RES, Crackles, Rales, Rhonchi, Stridor, Wheezing, Dullness Cardiovascular: positive: Regular Rhythm, Regular Rate, S1, S2. negative: Edema , JVD, Murmur, Bradycardia, Tachycardia Vascular Pulses: Dorsalis-Pedis (R): 2+, Doralis-Pedis (L): 2+ Gastrointestinal/Abdominal: positive: Normal Bowel Sounds, Flat, Soft. negative : Tender, Organomegaly, Pulsatile Mass, Increased Bowel Sounds, Decreased BS, Distended, Guarding, Rebound, Hernia, Hepatomegaly, Spleenomegaly Lymphatic: negative: Adenopathy, Tenderness Musculoskeletal: positive: Normal Inspection. negative: CVA Tenderness, Decreased Range of Motion Extremity: positive: Normal Capillary Refill, bilateral chronic stasis changes, mild non-pitting edema, Normal Range of Motion, Pelvis Stable. negative: Tender, Pedal Edema, Swelling, Erythema Integumentary: positive: Normal Color, Dry, Warm. negative: Cyanotic, Erythema , Jaundice, Rash Neurologic: positive: senior java programmer II-XII NML intact, Fully Oriented, Alert, Normal Mood/ Affect, Motor Strength 5/5. negative: EOM Palsy, Facial Droop, Sensory DeficitPhysical Exam - Medical Decision Making 11/12/17 01:57 Ct scan of head and bilateral dopplers are negative. Pt given Ciloxan drops for his conjunctivitis and be discharged <Shorty Umanzor - Last Filed: 11/12/17 01:58>
--- NOTE | 2017-11-12 00:37 | PDOC ---
History of Present Illness - General Chief Complaint: Pain Stated Complaint: HEADACHE Time Seen by Provider: 11/12/17 00:18 - History of Present Illness Initial Comments: 11/12/17 00:50 51yo man with PMH of CVA (2009 w/o residual weakness), HLD, NIDDM, non-hodgkin' s lymphoma (dx 1y ago, untreated) who presents with L conjunctivitis for the past 1.5 weeks and DE for 1 day. He went to [facility] 1.5 weeks ago for the conjunctivitis where he received antibiotic eye drops, but was unable to pick- up the Rx. He reports eye discomfort with discharge. He reports that his DE started around 5-6pm last night that was shooting in character along the midline of head that has now lateralized to L frontal and temporal regions. Reports DE worse when bends over. He has not taken any medication for it. No fever, chills, nausea, or vomiting. No h/o chronic DE, recent trauma or injury to his head. ALL: Librium -> nausea Sx: None PCP: Dr. Jaswinder Tadeo 11/12/17 01:07 11/12/17 01:15 Past History - Travel Traveled outside of the country in the last 30 days: No Close contact w/someone who was outside of country & ill: No - Past Medical History Allergies/Adverse Reactions: Allergies Allergy/AdvReac Type Severity Reaction Status Date / Time chlordiazepoxide HCl Allergy Nausea Verified 11/12/17 00:13 [From Librium] Home Medications: Ambulatory Orders Aspirin [ASA -] 81 mg PO DAILY 07/11/17 Aspirin [ASA -] 81 mg PO DAILY 07/11/17 Insulin Glargine,Hum.rec.anlog [Lantus (nf)] 50 units SQ HS 07/11/17 Insulin Glargine,Hum.rec.anlog [Lantus Solostar PEN -] 50 units SQ HS 07/11/17 Insulin NPH [Novolin N Vial] 0 units SQ AC PRN 07/11/17 Metformin HCl [Glucophage -] 500 mg PO BID 07/11/17 Metformin HCl [Glucophage -] 500 mg PO BID 07/11/17 Simvastatin [Zocor -] 40 mg PO HS 07/11/17 Simvastatin [Zocor -] 40 mg PO HS 07/11/17 Anemia: No Asthma: Yes Cancer: Yes (Lymphoma) Cardiac Disorders: No CVA: Yes (R sided weak) COPD: No CHF: No Dementia: No Diabetes: Yes GI Disorders: No Disorders: No HTN: No Hypercholesterolemia: Yes Kidney Stones: No Liver Disease: No Seizures: No Thyroid Disease: No - Surgical History Abdominal Surgery: No Appendectomy: No Cardiac Surgery: No Cholecystectomy: No Lung Surgery: No Neurologic Surgery: No Orthopedic Surgery: No - Reproductive History Testicular Surgery: No - Immunization History Immunization Up to Date: Yes - Suicide/Smoking/Psychosocial Hx Smoking Status: No Smoking History: Current some day smoker Have you smoked in the past 12 months: No Number of Cigarettes Smoked Daily: 3 Cigars Per Day: 0 Information on smoking cessation initiated: No 'Breaking Loose' booklet given: 07/11/17 (give on floor) Hx Alcohol Use: No Drug/Substance Use Hx: No Substance Use Type: None Hx Substance Use Treatment: Yes (detox, rehab) Review of Systems - Review of Systems Comments:: 11/12/17 01:17 + R leg swelling and intermittent claudication HEENTM: Yes: See HPI Neurological: Yes: See HPI, Headache Hematologic/Lymphatic: Yes: Lymph Node Abnormalities (pelvic lymphoma) *Physical Exam - Vital Signs Last Vital Signs Temp Pulse Resp BP Pulse Ox 98.8 F 87 20 123/84 96 11/12/17 00:13 11/12/17 00:13 11/12/17 00:13 11/12/17 00:13 11/12/17 00:13 - Physical Exam General Appearance: Yes: Nourished, Appropriately Dressed. No: Apparent Distress HEENT: positive: EOMI, JUSTEN, Other (L eye conjuctivitis, crusted purulent drainage, ttp under lower lid, (-) swelling, (-) ttp upper orbit). negative: Sinus Tenderness Neck: positive: Supple Respiratory/Chest: positive: Lungs Clear, Normal Breath Sounds Cardiovascular: positive: Regular Rhythm, Regular Rate, S1, S2 Vascular Pulses: Dorsalis-Pedis (R): 2+, Doralis-Pedis (L): 2+ Gastrointestinal/Abdominal: positive: Soft, Protuberent. negative: Distended, Guarding, Tenderness Extremity: positive: Swelling (R), Calf Tenderness (R), Other Neurologic: positive: marketing communications coordinator II-XII NML intact, Fully Oriented, Alert, Normal Mood/ Affect, Motor Strength /5 Medical Decision Making - Medical Decision Making 11/12/17 01:17 51yo man with PMH of non-hodgkins lymphoma, CVA, NIDDM, and HLD who presents with conjunctivitis and 1 day of DE. Physical exam notable for L eye purulent drainage and tenderness under lower lid w/o swelling. Will order head CT w/o contrast for DE and assess paranasal sinuses. Will order LE duplex to r/o DVT given h/o leg swelling and pain in the setting of malignancy. Ciprofloxacin eye drops for his conjunctivitis. Motrin 800mg for his DE, and will reassess. 11/12/17 01:43 LE duplex found no e/o DVT; enlarged b/l inguinal lymph nodes (up to 5.8cm on R , 7.6cm on L) identified c/w h/o lymphoma Head CT revealed no acute intraparenchymal pathology; parasinuses clear ( although lower half of mastoid sinuses not visualized), mastoid air cells clear. All imaging studies are reassuring. Will discharge patient home once DE improves. 11/12/17 02:23 DE has improved. Patient's vital signs are stable. All imaging studies were discussed with the patient. He will be discharged home. *DC/Admit/Observation/Transfer Diagnosis at time of Disposition: Conjunctivitis, left eye, Headache - Discharge Dispostion Disposition: HOME Condition at time of disposition: Stable Admit: No - Referrals Referrals: Jaswinder Tadeo [Primary Care Provider] - - Patient Instructions Printed Discharge Instructions: DI for Conjunctivitis, DI for Headache Additional Instructions: You have conjunctivitis in your left eye. It is very important that you keep your hands clean and avoid touching your eyes. Please make an appointment with your primary care physician within the next 1-2 weeks for follow-up. Place 1 to 2 drops of Cliocin four times per day in BOTH eyes for the next 7 days. You can take Motrin for your headache as needed. Please return to the Emergency Department if your symptoms worsen, your vision is affected, you have swelling in your, fever, or new or concerning symptoms. - Post Discharge Activity
[2017-11-12] MEDS: CIPROFLOXACIN 0.3% EYE DROPS 5 ML BOTTLE OS SCH ×3 (01:00→01:20)
[2017-11-12] MEDS ORDERED: CIPROFLOXACIN HCL 0.3% OPHTH 2.5ML BOTTLE ONE (01:30)
[2017-11-12] MEDS ORDERED: IBUPROFEN 400 MG TABLET (FP) PO ONE ×2 (01:47→01:56)
== END 2017-11-12 06:15 | disposition home or self-care (01) ==
LOC: JER 23:57
DX: R51 Headache (principal); H10.32 Unspecified acute conjunctivitis, left eye; E11.9 Type 2 diabetes mellitus without complications; Z79.84 Long term (current) use of oral hypoglycemic drugs; C85.80 Other specified types of non-Hodgkin lymphoma, unspecified site; I69.851 Hemiplegia and hemiparesis following other cerebrovascular disease affecting right dominant side; F17.210 Nicotine dependence, cigarettes, uncomplicated
CPT/HCPCS: 70450-TC; 93970-TC; 99281-25

== ENCOUNTER 2019-02-24 10:15 | Inpatient (IN) | payer OTHER ==
[2019-02-24 10:49] VITALS: BMI 28.3
--- NOTE | 2019-02-24 14:04 | HP ---
CIWA Score Nausea/Vomitin-No Nausea/No Vomiting Muscle Tremors: 4-Moderate,w/Arms Extend Anxiety: 4-Mod. Anxious/Guarded Agitation: 4-Moderately Restless Paroxysmal Sweats: 3 Orientation: 0-Oriented Tacttile Disturbances: 0-None Auditory Disturbances: 0-None Visual Disturbances: 0-None Headache: 2-Mild CIWA-Ar Total Score: 17 - Admission Criteria OASAS Guidelines: Admission for Medically Managed Detox: Requires at least one of the followin. CIWA greater than 12 2. Seizures within the past 24 hours 3. Delirium tremens within the past 24 hours 4. Hallucinations within the past 24 hours 5. Acute intervention needed for co occurring medical disorder 6. Acute intervention needed for co occurring psychiatric disorder 7. Severe withdrawal that cannot be handled at a lower level of care (continued vomiting, continued diarrhea, abnormal vital signs) requiring intravenous medication and/or fluids 8. Admission ROS [facility] Chief Complaint: I am here for detox. I was sober for two years and recently relapsed about 9- 10months ago. Now I am here for detox and get sober again. Allergies/Adverse Reactions: Allergies Allergy/AdvReac Type Severity Reaction Status Date / Time chlordiazepoxide HCl Allergy Nausea Verified 11/12/17 00:13 [From Librium] History of Present Illness: Pt is a 53yrold male with a history of alcohol, cocaine and cannabis seeking detox for treatment. Exam Limitations: No Limitations - Ebola screening Have you traveled outside of the country in the last 21 days: No Have you had contact with anyone from an Ebola affected area: No Have you been sick,other than usual withdrawal symptoms: No Do you have a fever: No - Review of Systems Constitutional: Chills, Night Sweats, Changes in sleep EENT: reports: Dental Problems (right side swelling d/t tooth abscess pt is currently on ABX.) Respiratory: reports: No Symptoms reported Cardiac: reports: No Symptoms Reported GI: reports: Constipated, Poor Appetite, Poor Fluid Intake : reports: No Symptoms Reported Musculoskeletal: reports: Back Pain Integumentary: reports: Flushing (pt has minimal swelling d/t toothache pt is on ABX), Sweating Neuro: reports: Tingling, Tremors Endocrine: reports: Excessive Sweating, Flushing, Intolerance to Cold, Intolerance to Heat Hematology: reports: No Symptoms Reported Psychiatric: reports: Judgement Intact, Mood/Affect Appropiate, Orientated x3, Agitated, Anxious Other Systems: Reviewed and Negative Patient History - Patient Medical History Hx Anemia: No Hx Asthma: Yes Hx Chronic Obstructive Pulmonary Disease (COPD): No Hx Cancer: Yes (Lymphoma) Hx Cardiac Disorders: No Hx Congestive Heart Failure: No Hx Hypertension: No Hx Hypercholesterolemia: Yes Hx Pacemaker: No HX Cerebrovascular Accident: Yes (R sided weak d/t stroke 2009) Hx Seizures: No Hx Dementia: No Hx Diabetes: Yes (trusiba 50mg insulin) Hx Gastrointestinal Disorders: No Hx Liver Disease: No Hx Genitourinary Disorders: No Hx Sexually Transmitted Disorders: No Hx Renal Disease (ESRD): No Hx Thyroid Disease: No Hx Human Immunodeficiency Virus (HIV): No (negative) Hx Hepatitis C: No (negative) Hx Depression: Yes Hx Suicide Attempt: No Hx Bipolar Disorder: No Hx Schizophrenia: No - Patient Surgical History Past Surgical History: Yes Hx Neurologic Surgery: No Hx Cataract Extraction: No Hx Cardiac Surgery: No Hx Lung Surgery: No Hx Breast Surgery: No Hx Breast Biopsy: No Hx Abdominal Surgery: No Hx Appendectomy: No Hx Cholecystectomy: No Hx Genitourinary Surgery: No Hx Section: No Hx Orthopedic Surgery: No Other Surgical History: TRACHEOSPLASTY AT AGE 3, biopsy of lymph node Anesthesia Reaction: No - PPD History Previous Implant?: Yes Documented Results: Negative w/o proof PPD to be Administered?: Yes - Reproductive History Patient is a Female of Child Bearing Age (11 -55 yrs old): No - Smoking Cessation Smoking history: Former smoker Have you smoked in the past 12 months: No Aproximately how many cigarettes per day: 3 If you are a former smoker, when did you quit?: 1yr ago Cigars Per Day: 0 Hx Chewing Tobacco Use: No Initiated information on smoking cessation: Yes 'Breaking Loose' booklet given: 02/24/19 - Substance & Tx. History Hx Alcohol Use: Yes Hx Substance Use: Yes Substance Use Type: Alcohol, Cocaine, Marijuana Hx Substance Use Treatment: Yes (last detox [facility] 2016) - Substances Abused Alcohol Route: Oral Frequency: Daily Amount used: 2-3 40oz beer, 3 glasses of wine, Age of first use: 15 Date of Last Use: 02/24/19 Cocaine Route: Inhalation Frequency: 1-3 times last 30 days Amount used: 1 gm Age of first use: 23 Date of Last Use: 02/21/19 Marijuana/Hashish Route: Smoking Frequency: Daily Amount used: dime bag Age of first use: 23 Date of Last Use: 02/23/19 Family Disease History - Family Disease History Family Disease History: Diabetes: Father (living), Heart Disease: Mother (living , HTN), CA: Grandparent (BREAST), Other: Brother (2 - living, healthy), Sister (2- living - healthy) Admission Physical Exam S - Vital Signs Vital Signs: Vital Signs - 24 hr 02/24/19 10:47 Temperature 96.6 F L Pulse Rate 98 H Respiratory 18 Rate Blood Pressure 154/96 - Physical General Appearance: Yes: Appropriately Dressed, Moderate Distress, Tremorous, Irritable, Sweating, Anxious HEENTM: Yes: Normal Voice, Nasal Congestion, Rhinorrhea Respiratory: Yes: Lungs Clear, Normal Breath Sounds, No Respiratory Distress Neck: Yes: No masses,lesions,Nodules Breast: Yes: No Discharge Cardiology: Yes: Regular Rhythm, Regular Rate, S1, S2, Tachycardia Abdominal: Yes: Normal Bowel Sounds Genitourinary: Yes: Within Normal Limits Back: Yes: Normal Inspection Musculoskeletal: Yes: full range of Motion, Back pain Extremities: Yes: Normal Inspection, Non-Tender, Tremors Neurological: Yes: Fully Oriented, Alert, Normal Response Integumentary: Yes: Normal Color, Diaphoresis Lymphatic: Yes: Within Normal Limits - Diagnostic (1) Back pain Current Visit: Yes Status: Chronic Qualifiers: Back pain location: low back pain (2) History of CVA (cerebrovascular accident) Current Visit: Yes Status: Chronic (3) Alcohol dependence with uncomplicated withdrawal Current Visit: Yes Status: Chronic (4) Cocaine dependence Current Visit: Yes Status: Chronic Qualifiers: Substance use status: uncomplicated Qualified Code(s): F14.20 - Cocaine dependence, uncomplicated Comment: . (5) Diabetes mellitus with insulin therapy Current Visit: Yes Status: Chronic (6) HLD (hyperlipidemia) Current Visit: Yes Status: Chronic Qualifiers: Hyperlipidemia type: unspecified Qualified Code(s): E78.5 - Hyperlipidemia , unspecified (7) Lymphoma Current Visit: No Status: Chronic Qualifiers: Lymphoma type: non-Hodgkin Non-Hodgkin lymphoma type: unspecified type Lymphoma site: unspecified region Qualified Code(s): C85.90 - Non-Hodgkin lymphoma, unspecified, unspecified site (8) Lymphoma involving lung Current Visit: No Status: Chronic Comment: X 8 YEARS, HAD LUNG TISSUE BIOPSY 2015, SCHEDULE FOR CHEMOTHERAPY "AFTER DETOX AND REHAB" (9) Psoriasis Current Visit: No Status: Chronic Comment: SCALP (10) Syncope Current Visit: Yes Status: Chronic Qualifiers: Syncope type: unspecified Qualified Code(s): R55 - Syncope and collapse (11) Type II diabetes mellitus Current Visit: Yes Status: Chronic Qualifiers: Diabetes mellitus intermediate insulin use: with intermediate use Diabetes mellitus complication status: with neurologic complications Diabetes mellitus complication detail: with polyneuropathy Qualified Code(s): 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 (13) Depression Current Visit: No Status: Suspected Qualifiers: Depression Type: dysthymia Qualified Code(s): F34.1 - Dysthymic disorder (14) Paranoid schizophrenia Current Visit: Yes Status: Chronic Comment: Historical diagnosis. Cleared for Admission S - Detox or Rehab [facility] Level of Care: Medically Managed Detox Regimen/Protocol: Valium [facility] Breath Alcohol Content Breath Alcohol Content: 0 Urine Drug Screen - Results Drug Screen Negative: Yes Urine Drug Screen Results: THC-Marijuana, ULISSES-Cocaine Inpatient Rehab Admission - Rehab Decision to Admit Inpatient rehab admission?: No
[2019-02-24] MEDS ORDERED: MAGNESIUM HYDROX 2400MG/30ML ORAL SUSPENSION 30 ML CUP PO PRN (14:34)
[2019-02-24] MEDS ORDERED: hydrOXYzine PAMOATE 25 MG CAPSULE (FP) PO PRN (14:34)
[2019-02-24] MEDS ORDERED: ONDANSETRON *ODT* 4 MG TABLET SL PRN (14:34)
[2019-02-24] MEDS ORDERED: IBUPROFEN 400 MG TABLET (FP) PO PRN (14:34)
[2019-02-24] MEDS ORDERED: BISMUTH SUBSALICYLATE 524 MG/30 ML UD PO PRN (14:34)
[2019-02-24] MEDS ORDERED: MAGNESIUM CITRATE 300 ML BOTTLE PO PRN (14:34)
[2019-02-24] MEDS ORDERED: MELATONIN 5 MG TABLETS PO PRN (14:34)
[2019-02-24] MEDS ORDERED: ACETAMINOPHEN 325 MG TABLET (FP) PO PRN ×2 (14:34)
[2019-02-24] MEDS ORDERED: METHOCARBAMOL 500 MG TABLET PO PRN (14:34)
[2019-02-24] MEDS ORDERED: diazePAM 5 MG TABLET PO ONE (15:40)
[2019-02-24] MEDS: THIAMINE HCL 100 MG TABLET (FP) PO SCH (22:57)
[2019-02-24] MEDS: AMOXICILLIN 500 MG CAPSULE (FP) PO SCH (22:57)
[2019-02-24] MEDS: INSULIN (LEVEMIR) 100 UNITS/ML UNITS SQ SCH (22:58)
[2019-02-24] MEDS: diazePAM 5 MG TABLET PO SCH (22:58)
[2019-02-25] MEDS: diazePAM 5 MG TABLET PO SCH ×3 (05:39→22:19)
[2019-02-25] MEDS: diazePAM 5 MG TABLET PO PRN ×2 (08:57→18:43)
[2019-02-25] MEDS: MAG HYDROX/AL HYDROX/SIMETH 30 ML UNIT-DOSE CUP PO PRN ×2 (09:04→18:46)
[2019-02-25] MEDS: PRENATAL VITAMINS W/ FOLIC ACID TABLET (FP) PO SCH (10:14)
--- NOTE | 2019-02-25 10:20 | EKG ---
Test Reason : Blood Pressure : / mmHG Vent. Rate : 096 BPM Atrial Rate : 096 BPM P-R Int : 148 ms QRS Dur : 092 ms QT Int : 386 ms P-R-T Axes : 050 -02 040 degrees QTc Int : 487 ms NORMAL SINUS RHYTHM VOLTAGE CRITERIA FOR LEFT VENTRICULAR HYPERTROPHY NONSPECIFIC ST AND T WAVE ABNORMALITY PROLONGED QT ABNORMAL ECG Confirmed by MARK CHUN MD ([id number]) on 02/25/2019 10:20:27 AM Referred By: Confirmed By:MARK CHUN MD
[2019-02-25] MEDS: MENTHOL/PHENOL 1 EACH UD MM PRN ×2 (10:24→18:45)
[2019-02-25 10:37] LABS: HEMATOCRIT 45.6 % (35.4-49); HEMOGLOBIN 14.5 GM/dL (11.7-16.9); MCH 27.6 pg (25.7-33.7); MCHC 31.8 g/dl (32.0-35.9); MEAN CELL VOLUME 86.6 fl (80-96); MEAN PLT VOLUME 9.2 fl (7.5-11.1); PLATELET COUNT 225 K/MM3 (134-434); RBC 5.26 M/mm3 (4.00-5.60); RDW 16.5 % (11.9-15.9); WHITE BLOOD COUNT 3.4 K/mm3 (4.0-10.0)
[2019-02-25 10:48] LABS: ALBUMIN 4.1 g/dl (3.4-5.0); ALK PHOS 161 U/L (45-117); ANION GAP 7 MMOL/L (8-16); BILIRUBIN,TOTAL 0.2 mg/dL (0.2-1); BLOOD UREA NITROGEN 13 mg/dL (7-18); CALCIUM 9.2 mg/dL (8.5-10.1); CHLORIDE 100 mmol/L (98-107); CO2 32 mmol/L (21-32); CREATININE 0.9 mg/dL (0.55-1.3); POTASSIUM 4.3 mmol/L (3.5-5.1); SGOT/AST 16 U/L (15-37); SGPT/ALT 36 U/L (13-61); SODIUM 138 mmol/L (136-145); TOT PROT 7.3 g/dl (6.4-8.2)
[2019-02-25] MEDS: AMOXICILLIN 500 MG CAPSULE (FP) PO SCH ×2 (10:48→22:18)
--- NOTE | 2019-02-25 11:38 | CONSULT ---
[facility] Psychiatric Consult - Data Date of interview: 02/25/19 Admission source: [facility] Identifying data: This is one of multiple admissions to [facility] for this 53 y/ o AA male self-referred for detoxification (alcohol, cocaine). Examined at [address] [place] [address]. Patient is single, a father of eleven, unemployed, domiciled and supported on SSI benefits. Substance Abuse History: Confirmed by patient in this interview. Details in current [facility] report as follows : Smoking history: Former smoker. Have you smoked in the past 12 months: No. Aproximately how many cigarettes per day: 3. If you are a former smoker, when did you quit?: 1yr ago. Cigars Per Day: 0. Hx Chewing Tobacco Use: No. Initiated information on smoking cessation: Yes. ' Breaking Loose' booklet given: 02/24/19. - Substance & Tx. History. Hx Alcohol Use: Yes. Hx Substance Use: Yes. Substance Use Type: Alcohol, Cocaine , Marijuana. Hx Substance Use Treatment: Yes (last detox [facility] 2016). - Substances Abused. Alcohol. Route: Oral. Frequency: Daily. Amount used: 2 -3 40oz beer, 3 glasses of wine,. Age of first use: 15. Date of Last Use: . Cocaine. Route: Inhalation. Frequency: 1-3 times last 30 days. Amount used: 1 gm. Age of first use: 23. Date of Last Use: 02/21/19. Marijuana/Hashish. Route: Smoking. Frequency: Daily. Amount used: dime bag. Age of first use: 23. 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 recent history of chemotherapy (non-Hodgkin lymphoma). Psychiatric History: Patient endorses a history of 10 psychiatric hospitalizations (since 2004). Reportedly diagnosed with Paranoid Schizophrenia. Mr Hollingsworth indicates a long standing history of treatment with neuroleptic medications (haloperidol). Patient also admits to chronic non- adherence to psychopharmacotherapy (neuroleptics or atypical antipsychotic medications) because of adverse effects (abnormal involuntary movements and stiffness). Patient reports that he, officially, gets his psychiatric OPD services at the [facility] mental health clinic in [place]. Questionable adherence to follow-up appointments. Psychiatric admissions took place at [facility] ([place]) + [facility] + [facility] ([facility]). Noted history of suicide attempt via self- mutilation (cutting years ago). Physical/Sexual Abuse/Trauma History: Patient denies. Additional Comment: Urine Drug Screen Results: THC-Marijuana, ULISSES-Cocaine. Noted. Mental Status Exam - Mental Status Exam Alert and Oriented to: Time, Place, Person Cognitive Function: Good Patient Appearance: Well Groomed Mood: Nervous, Withdrawn Affect: Mood Congruent, Constricted Patient Behavior: Fatigued, Cooperative Speech Pattern: Clear, Appropriate Voice Loudness: Normal Thought Process: Goal Oriented Thought Disorder: Not Present Hallucinations: Denies Suicidal Ideation: Denies Homicidal Ideation: Denies Insight/Judgement: Poor Sleep: Well Appetite: Good Muscle strength/Tone: Normal Gait/Station: Hemiparetic Psychiatric Findings - Problem List ([place] 1, 2,3) (1) Alcohol dependence with uncomplicated withdrawal Current Visit: Yes Status: Acute (2) Cocaine dependence Current Visit: Yes Status: Chronic Qualifiers: Substance use status: uncomplicated Qualified Code(s): F14.20 - Cocaine dependence, uncomplicated Comment: . (3) Cannabis dependence Current Visit: Yes Status: Chronic (4) Substance induced mood disorder Current Visit: Yes Status: Chronic (5) Nicotine dependence Current Visit: Yes Status: Chronic (6) History of schizophrenia Current Visit: Yes Status: Chronic Comment: No compliant with medications. (7) Non-compliance Current Visit: Yes Status: Chronic - Initial Treatment Plan Initial Treatment Plan: Psychoeducation. Sleep hygiene. Support. Strategies of relapse prevention : discussed in session. Patient is reminded of the importance and benefits of psychotropic medications (second generation antipsychotics) for management of schizophrenia + mood stabilization. AA meetings. Groups. Motivational enhancement for positive lifestyle changes. Mr Hollingsworth declines to resume antipsychotic medication. Observation.
[2019-02-25] MEDS: INSULIN SLIDING SCALE (NOVOLOG) 1 VIAL SQ SCH ×2 (11:48→17:40)
[2019-02-25 11:52] LABS: GLUCOSE,RANDOM 355 mg/dL (74-106)
--- NOTE | 2019-02-25 14:45 | PN ---
S CIWA - CIWA Score Nausea/Vomitin-No Nausea/No Vomiting Muscle Tremors: None Anxiety: 3 Agitation: 2 Paroxysmal Sweats: No Perspiration Orientation: 0-Oriented Tacttile Disturbances: 2-Mild Itch/Numbness/Burn Auditory Disturbances: 2-Mild Harshness/Frighten Visual Disturbances: 3-Moderate Sensitivity Headache: 0-None Present CIWA-Ar Total Score: 12 BHS Progress Note (SOAP) Subjective: Stomach Cramping, Anxious, Constipation. Objective: PATIENT A & O X 3, OBSERVED AMBULATING ON UNIT. IN NO ACUTE DISTRESS. 02/25/19 14:45 Vital Signs Temperature 96.9 F L 02/25/19 13:00 Pulse Rate 91 H 02/25/19 13:00 Respiratory Rate 18 02/25/19 13:00 Blood Pressure 134/90 02/25/19 13:00 O2 Sat by Pulse Oximetry (%) Laboratory Tests 02/24/19 02/25/19 02/25/19 22:56 05:38 06:00 WBC 3.4 L RBC 5.26 Hgb 14.5 Hct 45.6 MCV 86.6 MCH 27.6 MCHC 31.8 L RDW 16.5 H Plt Count 225 D MPV 9.2 Sodium Potassium Chloride Carbon Dioxide Anion Gap BUN Creatinine Creat Clearance w eGFR POC Glucometer 435 290 Random Glucose Calcium Total Bilirubin AST ALT Alkaline Phosphatase Total Protein Albumin RPR Titer 02/25/19 02/25/19 02/25/19 06:00 06:00 10:55 WBC RBC Hgb Hct MCV MCH MCHC RDW Plt Count MPV Sodium 138 Potassium 4.3 Chloride 100 Carbon Dioxide 32 Anion Gap 7 L BUN 13 Creatinine 0.9 Creat Clearance w eGFR 88.61 POC Glucometer 436 Random Glucose 355 H* Calcium 9.2 Total Bilirubin 0.2 AST 16 ALT 36 Alkaline Phosphatase 161 H Total Protein 7.3 Albumin 4.1 RPR Titer Nonreactive LABS NOTED. Assessment: 02/25/19 14:46 WITHDRAWAL SYMPTOMS. ELEVATED BLOOD PRESSURE. LEUKOPENIA. HYPERGLYCEMIA. Plan: CONTINUE DETOX. INCREASE DAILY PO FLUID INTAKE. CLONIDINE, 0.1 MG PO BID FOR ELEVATED BP. PRN MOM PO FOR CONSTIPATION.
[2019-02-25] MEDS ORDERED: cloNIDine HCL 0.1 MG TABLET PO ONE (14:48)
[2019-02-25] MEDS: INSULIN (LEVEMIR) 100 UNITS/ML UNITS SQ SCH (22:18)
[2019-02-25] MEDS: cloNIDine HCL 0.1 MG TABLET PO SCH (22:19)
[2019-02-25] MEDS: THIAMINE HCL 100 MG TABLET (FP) PO SCH (22:19)
[2019-02-25] MEDS ORDERED: INSULIN (NOVOLOG) ASPART 100 UNITS/ML 10ML VIAL SQ ONE (23:00)
[2019-02-26] MEDS: INSULIN SLIDING SCALE (NOVOLOG) 1 VIAL SQ SCH ×3 (06:02→18:06)
[2019-02-26] MEDS: diazePAM 5 MG TABLET PO SCH ×2 (10:07→22:10)
[2019-02-26] MEDS: AMOXICILLIN 500 MG CAPSULE (FP) PO SCH ×2 (10:07→22:10)
[2019-02-26] MEDS: cloNIDine HCL 0.1 MG TABLET PO SCH ×2 (10:07→22:12)
[2019-02-26] MEDS: PRENATAL VITAMINS W/ FOLIC ACID TABLET (FP) PO SCH (10:07)
--- NOTE | 2019-02-26 13:06 | PN ---
[facility] CIWA - CIWA Score Nausea/Vomitin-Mild Nausea/No Vomiting Muscle Tremors: 3 Anxiety: 1-Mildly Anxious Agitation: 0-Normal Activity Paroxysmal Sweats: 3 Orientation: 0-Oriented Tacttile Disturbances: 0-None Auditory Disturbances: 0-None Visual Disturbances: 0-None Headache: 0-None Present CIWA-Ar Total Score: 8 S Progress Note (SOAP) Subjective: Sweats Objective: 02/26/19 13:03 A & O x 3 In bed, not in acute distress Vital Signs Temperature 97.0 F L 02/26/19 09:48 Pulse Rate 76 02/26/19 09:48 Respiratory Rate 20 02/26/19 09:48 Blood Pressure 126/83 02/26/19 09:48 O2 Sat by Pulse Oximetry (%) Laboratory Last Values WBC 3.4 K/mm3 (4.0-10.0) L 02/25/19 06:00 RBC 5.26 M/mm3 (4.00-5.60) 02/25/19 06:00 Hgb 14.5 GM/dL (11.7-16.9) 02/25/19 06:00 Hct 45.6 % (35.4-49) 02/25/19 06:00 MCV 86.6 fl (80-96) 02/25/19 06:00 MCH 27.6 pg (25.7-33.7) 02/25/19 06:00 MCHC 31.8 g/dl (32.0-35.9) L 02/25/19 06:00 RDW 16.5 % (11.9-15.9) H 02/25/19 06:00 Plt Count 225 K/MM3 (134-434) D 02/25/19 06:00 MPV 9.2 fl (7.5-11.1) 02/25/19 06:00 Sodium 138 mmol/L (136-145) 02/25/19 06:00 Potassium 4.3 mmol/L (3.5-5.1) 02/25/19 06:00 Chloride 100 mmol/L (98-107) 02/25/19 06:00 Carbon Dioxide 32 mmol/L (21-32) 02/25/19 06:00 Anion Gap 7 MMOL/L (8-16) L 02/25/19 06:00 BUN 13 mg/dL (7-18) 02/25/19 06:00 Creatinine 0.9 mg/dL (0.55-1.3) 02/25/19 06:00 Creat Clearance w eGFR 88.61 (>60) 02/25/19 06:00 POC Glucometer 276 UNITS (80-120) 02/26/19 12:22 Random Glucose 355 mg/dL (74-106) H* 02/25/19 06:00 Calcium 9.2 mg/dL (8.5-10.1) 02/25/19 06:00 Total Bilirubin 0.2 mg/dL (0.2-1) 02/25/19 06:00 AST 16 U/L (15-37) 02/25/19 06:00 ALT 36 U/L (13-61) 02/25/19 06:00 Alkaline Phosphatase 161 U/L (45-117) H 02/25/19 06:00 Total Protein 7.3 g/dl (6.4-8.2) 02/25/19 06:00 Albumin 4.1 g/dl (3.4-5.0) 02/25/19 06:00 RPR Titer Nonreactive (NONREACTIVE) 02/25/19 06:00 Hyperglycemia, pt is diabetic 02/26/19 13:18 Assessment: 02/26/19 13:06 withdrawal sx Plan: Continue detox Continue anti - diabetics
--- NOTE | 2019-02-26 18:59 | PN ---
BHS Progress Note Note: redness of conjunctive with discharge and tearing, vision ok movement of eyeball,no limitation conjunctivitis cipro opht solution left eye close monitoring
[2019-02-26] MEDS: THIAMINE HCL 100 MG TABLET (FP) PO SCH (22:09)
[2019-02-26] MEDS: CIPROFLOXACIN HCL 0.3% OPHTH 2.5ML BOTTLE OS SCH (22:10)
[2019-02-26] MEDS: INSULIN (LEVEMIR) 100 UNITS/ML UNITS SQ SCH (22:11)
[2019-02-27] MEDS: CIPROFLOXACIN HCL 0.3% OPHTH 2.5ML BOTTLE OS SCH ×2 (05:57→10:06)
[2019-02-27] MEDS ORDERED: diazePAM 5 MG TABLET PO SCH (06:00)
[2019-02-27] MEDS: INSULIN SLIDING SCALE (NOVOLOG) 1 VIAL SQ SCH (06:39)
--- NOTE | 2019-02-27 08:41 | DS ---
[facility] Detox Discharge Summary Admission Date: 02/24/19 Discharge Date: 02/27/19 - History Present History: Alcohol Dependence Additional Comments: 53 years male admitted on 02/24/19 for alcohol withdrawal stabilization completed detox regimen [facility] Physical Exam Results Vital Signs: Vital Signs Temperature 97.2 F L 02/27/19 06:18 Pulse Rate 78 02/27/19 06:18 Respiratory Rate 18 02/27/19 06:18 Blood Pressure 110/67 02/27/19 06:18 O2 Sat by Pulse Oximetry (%) Pertinent Admission Physical Exam Findings: alcohol withdrawal sx Laboratory Last Values WBC 3.4 K/mm3 (4.0-10.0) L 02/25/19 06:00 RBC 5.26 M/mm3 (4.00-5.60) 02/25/19 06:00 Hgb 14.5 GM/dL (11.7-16.9) 02/25/19 06:00 Hct 45.6 % (35.4-49) 02/25/19 06:00 MCV 86.6 fl (80-96) 02/25/19 06:00 MCH 27.6 pg (25.7-33.7) 02/25/19 06:00 MCHC 31.8 g/dl (32.0-35.9) L 02/25/19 06:00 RDW 16.5 % (11.9-15.9) H 02/25/19 06:00 Plt Count 225 K/MM3 (134-434) D 02/25/19 06:00 MPV 9.2 fl (7.5-11.1) 02/25/19 06:00 Sodium 138 mmol/L (136-145) 02/25/19 06:00 Potassium 4.3 mmol/L (3.5-5.1) 02/25/19 06:00 Chloride 100 mmol/L (98-107) 02/25/19 06:00 Carbon Dioxide 32 mmol/L (21-32) 02/25/19 06:00 Anion Gap 7 MMOL/L (8-16) L 02/25/19 06:00 BUN 13 mg/dL (7-18) 02/25/19 06:00 Creatinine 0.9 mg/dL (0.55-1.3) 02/25/19 06:00 Creat Clearance w eGFR 88.61 (>60) 02/25/19 06:00 POC Glucometer 360 UNITS (80-120) 02/27/19 05:13 Random Glucose 355 mg/dL (74-106) H* 02/25/19 06:00 Calcium 9.2 mg/dL (8.5-10.1) 02/25/19 06:00 Total Bilirubin 0.2 mg/dL (0.2-1) 02/25/19 06:00 AST 16 U/L (15-37) 02/25/19 06:00 ALT 36 U/L (13-61) 02/25/19 06:00 Alkaline Phosphatase 161 U/L (45-117) H 02/25/19 06:00 Total Protein 7.3 g/dl (6.4-8.2) 02/25/19 06:00 Albumin 4.1 g/dl (3.4-5.0) 02/25/19 06:00 RPR Titer Nonreactive (NONREACTIVE) 02/25/19 06:00 lab noted - Treatment Hospital Course: Detox Protocol Followed, Detoxed Safely, Responded well, Discharged Condition Good, Rehab Referral Accepted Patient has Accepted a Rehab Referral to: [facility] - Medication Discharge Medications: Ambulatory Orders Aspirin [ASA -] 81 mg PO DAILY 07/11/17 Insulin Glargine,Hum.rec.anlog [Lantus Solostar PEN -] 50 units SQ HS 07/11/17 Simvastatin [Zocor -] 40 mg PO HS 07/11/17 Amoxicillin - [Amoxicillin 875mg Tablet -] 875 mg PO BID #7 tablet 02/27/19 Ciprofloxacin 0.3% Eye Drops [Ciloxan 0.3% Eye Drops -] 1 drop OS Q4HWA #1 drops 02/27/19 - Diagnosis (1) Alcohol dependence with uncomplicated withdrawal Current Visit: Yes Status: Acute (2) Diabetes mellitus with insulin therapy Current Visit: Yes Status: Chronic (3) HLD (hyperlipidemia) Current Visit: Yes Status: Chronic Qualifiers: Hyperlipidemia type: pure hypercholesterolemia Qualified Code(s): E78.00 - Pure hypercholesterolemia, unspecified; E78.0 - Pure hypercholesterolemia (4) Nicotine dependence Current Visit: Yes Status: Acute Qualifiers: Nicotine product type: cigarettes Substance use status: in withdrawal Qualified Code(s): F17.213 - Nicotine dependence, cigarettes, with withdrawal (5) Type II diabetes mellitus Current Visit: Yes Status: Chronic Qualifiers: Diabetes mellitus correction insulin use: with director long term care use Diabetes mellitus complication status: with neurologic complications Diabetes mellitus complication detail: with polyneuropathy Qualified Code(s): E11.42 - Type 2 diabetes mellitus with diabetic polyneuropathy - AMA Did Patient Leave Against Medical Advice: No
[2019-02-27 09:56] VITALS: BP 156/92; PULSE 75; TEMP 96.2
[2019-02-27] MEDS: PRENATAL VITAMINS W/ FOLIC ACID TABLET (FP) PO SCH (10:06)
[2019-02-27] MEDS: AMOXICILLIN 500 MG CAPSULE (FP) PO SCH (10:07)
[2019-02-27] MEDS: cloNIDine HCL 0.1 MG TABLET PO SCH (10:07)
== END 2019-02-27 11:15 | disposition home or self-care (01) | DRG 774 ==
LOC: YASAS 10:15 → Y3N 14:59
PROVIDERS: ADMIT Surgery; ATTEND Surgery
PROC: HZ2ZZZZ Detoxification Services for Substance Abuse Treatment (ICD-10-PCS; principal; 2019-02-24)
DX: F10.230 Alcohol dependence with withdrawal, uncomplicated (principal); F14.20 Cocaine dependence, uncomplicated; F12.20 Cannabis dependence, uncomplicated; F17.213 Nicotine dependence, cigarettes, with withdrawal; F19.24 Other psychoactive substance dependence with psychoactive substance-induced mood disorder; F34.1 Dysthymic disorder; E11.42 Type 2 diabetes mellitus with diabetic polyneuropathy; Z79.4 Long term (current) use of insulin; M54.5 Low back pain; H10.32 Unspecified acute conjunctivitis, left eye; L40.9 Psoriasis, unspecified; D72.818 Other decreased white blood cell count; I69.851 Hemiplegia and hemiparesis following other cerebrovascular disease affecting right dominant side; Z85.72 Personal history of non-Hodgkin lymphomas; Z91.19 Patient's noncompliance with other medical treatment and regimen; Z86.59 Personal history of other mental and behavioral disorders
CPT/HCPCS: 36415; 80053; 82962; 85027; 86593; 93005; 93010; J0735

== ENCOUNTER 2020-12-22 12:39 | Inpatient (IN) | payer OTHER ==
[2020-12-22 13:46] VITALS: BMI 29.9
[2020-12-22 14:19] LABS: BASO % 0.3 % (0-2.0); EOS % 0.3 % (0-4.5); HEMATOCRIT 43.2 % (35.4-49); HEMOGLOBIN 14.3 GM/dL (11.7-16.9); LYMPH % 17.3 % (8-40); MCH 29.1 pg (25.7-33.7); MEAN PLT VOLUME 9.2 fl (7.5-11.1); MONO % 7.6 % (3.8-10.2); NEUT % 74.5 % (42.8-82.8); PLATELET COUNT 178 K/MM3 (134-434); RBC 4.91 M/mm3 (4.00-5.60); RDW 15.8 % (11.9-15.9); WHITE BLOOD COUNT 9.5 K/mm3 (4.0-10.0)
[2020-12-22 14:27] LABS: INR 1.07 (0.83-1.09); PROTHROMBIN TIME (PATIENT) 13.1 SEC (9.7-13.0)
[2020-12-22 14:29] LABS: ACTIVATED PTT 29.6 SECONDS (25.2-36.5)
[2020-12-22 14:41] LABS: CHLORIDE 102 mmol/L (98-107); POTASSIUM 3.9 mmol/L (3.5-5.1); SODIUM 138 mmol/L (136-145)
[2020-12-22 14:43] LABS: CALCIUM 8.8 mg/dL (8.5-10.1)
[2020-12-22 14:44] LABS: ALBUMIN 3.6 g/dl (3.4-5.0); ANION GAP 4 MMOL/L (8-16); BLOOD UREA NITROGEN 15.3 mg/dL (7-18); CO2 32 mmol/L (21-32); GLUCOSE,RANDOM 321 mg/dL (74-106)
[2020-12-22 14:47] LABS: CREATININE 0.9 mg/dL (0.55-1.3); SGOT/AST 24 U/L (15-37); SGPT/ALT 47 U/L (13-61)
[2020-12-22 14:48] LABS: BILIRUBIN,TOTAL 0.4 mg/dL (0.2-1); TOT PROT 6.4 g/dl (6.4-8.2)
[2020-12-22 14:50] LABS: ALK PHOS 107 U/L (45-117)
[2020-12-22 14:51] LABS: LDH 245 U/L (87-246)
[2020-12-22] MEDS ORDERED: INSULIN REGULAR HUMAN 100 UNITS/ML *VIAL SQ ONE (16:37)
[2020-12-22] MEDS ORDERED: ATORVASTATIN CA 80 MG TABLET (FP) PO ONE (17:49)
[2020-12-22] MEDS ORDERED: CIPROFLOXACIN HCL 0.3% OPHTH 2.5ML BOTTLE ONE (18:07)
[2020-12-22] MEDS ORDERED: THIAMINE HCL 100 MG TABLET (FP) ONE (18:08)
[2020-12-22] MEDS ORDERED: ATORVASTATIN CA 80 MG TABLET (FP) ONE (18:08)
[2020-12-22 18:14] LABS: CHOLESTEROL 171 mg/dL (50-200); TRIGLYCERIDES 208 mg/dL (0-150)
[2020-12-22 18:15] LABS: LDL CHOLESTEROL (ONLY SJRH) 82 mg/dL (5-100)
[2020-12-22 18:17] LABS: HDL CHOLESTEROL 58 mg/dL (40-60)
[2020-12-22] MEDS: CIPROFLOXACIN HCL 0.3% OPHTH 2.5ML BOTTLE OS SCH ×2 (19:03→22:08)
[2020-12-22] MEDS: THIAMINE HCL 100 MG TABLET (FP) PO SCH (19:04)
[2020-12-22] MEDS ORDERED: GABAPENTIN 100 MG CAPSULE ONE (21:06)
[2020-12-22] MEDS ORDERED: INSULIN (LEVEMIR) 100 UNITS/ML UNITS SQ ONE (21:07)
[2020-12-22] MEDS: GABAPENTIN 300 MG CAPSULE PO SCH (21:23)
[2020-12-22] MEDS ORDERED: PATIENT'S OWN MEDICATION (NON-FORMULARY) (Insulin Glargine,Hum.Rec.Anlog 30 UNITS) SQ SCH (22:00)
[2020-12-22] MEDS ORDERED: PATIENT'S OWN MEDICATION (NON-FORMULARY) (Insulin Glargine,Hum.Rec.Anlog 100 UNITS/ML Ins) SQ SCH (22:00)
[2020-12-22] MEDS ORDERED: INSULIN (LEVEMIR) 100 UNITS/ML UNITS SQ SCH (22:00)
[2020-12-23] MEDS ORDERED: GABAPENTIN 100 MG CAPSULE ONE (05:33)
[2020-12-23] MEDS: CIPROFLOXACIN HCL 0.3% OPHTH 2.5ML BOTTLE OS SCH ×5 (05:41→21:57)
[2020-12-23] MEDS: GABAPENTIN 300 MG CAPSULE PO SCH ×3 (05:41→21:47)
[2020-12-23 05:46] LABS: BASO % 0.7 % (0-2.0); EOS % 2.1 % (0-4.5); HEMATOCRIT 42.8 % (35.4-49); HEMOGLOBIN 14.1 GM/dL (11.7-16.9); LYMPH % 34.8 % (8-40); MCH 28.8 pg (25.7-33.7); MCHC 32.9 g/dl (32.0-35.9); MEAN CELL VOLUME 87.5 fl (80-96); MEAN PLT VOLUME 8.9 fl (7.5-11.1); MONO % 12.1 % (3.8-10.2); NEUT % 50.3 % (42.8-82.8); PLATELET COUNT 162 K/MM3 (134-434); RBC 4.89 M/mm3 (4.00-5.60); RDW 15.5 % (11.9-15.9); WHITE BLOOD COUNT 5.3 K/mm3 (4.0-10.0)
[2020-12-23 06:14] LABS: POTASSIUM 3.7 mmol/L (3.5-5.1)
[2020-12-23 06:36] LABS: ALBUMIN 3.3 g/dl (3.4-5.0); BILIRUBIN,TOTAL 0.3 mg/dL (0.2-1); BLOOD UREA NITROGEN 15.3 mg/dL (7-18); CALCIUM 8.2 mg/dL (8.5-10.1); CREATININE 0.8 mg/dL (0.55-1.3)
[2020-12-23] MEDS ORDERED: ACETAMINOPHEN 325 MG TABLET (FP) PO PRN (08:56)
[2020-12-23] MEDS ORDERED: THIAMINE HCL 100 MG TABLET (FP) ONE (10:10)
[2020-12-23] MEDS: THIAMINE HCL 100 MG TABLET (FP) PO SCH (10:30)
[2020-12-23 15:51] LABS: URINE AMPHETAMINES NEGATIVE ng/ml (CUTOFF=500)
[2020-12-23 15:52] LABS: OPIATES, URI NEGATIVE ng/ml (CUTOFF=300); PHENCYCLIDINE,URINE NEGATIVE ng/ml (CUTOFF=25)
[2020-12-23 16:14] LABS: METHADONE, UR NEGATIVE ng/ml (CUTOFF=300); URINE BARBITURATES NEGATIVE ng/ml (CUTOFF=200); URINE BENZODIAZEPINES NEGATIVE ng/ml (CUTOFF=200)
[2020-12-23] MEDS: INSULIN SLIDING SCALE (NOVOLOG) 1 VIAL SQ SCH ×2 (16:57→21:51)
[2020-12-23 17:02] LABS: COCAINE, UR POSITIVE ng/ml (CUTOFF=300)
[2020-12-23] MEDS: ASPIRIN 81 MG CHEWABLE TABLETS PO SCH (18:33)
[2020-12-23] MEDS: ATORVASTATIN CA 80 MG TABLET (FP) PO SCH (21:46)
[2020-12-23] MEDS: INSULIN (LEVEMIR) 100 UNITS/ML UNITS SQ SCH (21:54)
[2020-12-24] MEDS: CIPROFLOXACIN HCL 0.3% OPHTH 2.5ML BOTTLE OS SCH ×5 (05:24→21:20)
[2020-12-24] MEDS: GABAPENTIN 300 MG CAPSULE PO SCH ×3 (05:24→21:18)
[2020-12-24] MEDS: INSULIN SLIDING SCALE (NOVOLOG) 1 VIAL SQ SCH ×4 (05:59→21:18)
[2020-12-24] MEDS: THIAMINE HCL 100 MG TABLET (FP) PO SCH (10:20)
[2020-12-24] MEDS: ASPIRIN 81 MG CHEWABLE TABLETS PO SCH (10:20)
[2020-12-24] MEDS: INSULIN (LEVEMIR) 100 UNITS/ML UNITS SQ SCH (21:18)
[2020-12-24] MEDS: ATORVASTATIN CA 80 MG TABLET (FP) PO SCH (21:19)
[2020-12-25] MEDS: GABAPENTIN 300 MG CAPSULE PO SCH ×3 (06:43→21:49)
[2020-12-25] MEDS: INSULIN SLIDING SCALE (NOVOLOG) 1 VIAL SQ SCH ×4 (06:43→21:57)
[2020-12-25] MEDS: CIPROFLOXACIN HCL 0.3% OPHTH 2.5ML BOTTLE OS SCH ×5 (06:44→21:51)
[2020-12-25] MEDS: ASPIRIN 81 MG CHEWABLE TABLETS PO SCH (10:17)
[2020-12-25] MEDS: THIAMINE HCL 100 MG TABLET (FP) PO SCH (10:17)
[2020-12-25] MEDS ORDERED: SIMETHICONE 40 MG/0.6 ML BOTTLE PO PRN (11:09)
[2020-12-25] MEDS ORDERED: SIMETHICONE 80 MG TAB.CHEW (FP) PO PRN (11:35)
[2020-12-25] MEDS: LISINOPRIL 5 MG TABLET PO SCH (11:37)
[2020-12-25] MEDS: ATORVASTATIN CA 80 MG TABLET (FP) PO SCH (21:50)
[2020-12-25] MEDS: INSULIN (LEVEMIR) 100 UNITS/ML UNITS SQ SCH (21:54)
[2020-12-26] MEDS: CIPROFLOXACIN HCL 0.3% OPHTH 2.5ML BOTTLE OS SCH ×3 (06:18→13:53)
[2020-12-26] MEDS: GABAPENTIN 300 MG CAPSULE PO SCH ×2 (06:19→13:53)
[2020-12-26] MEDS: INSULIN SLIDING SCALE (NOVOLOG) 1 VIAL SQ SCH ×2 (06:19→10:49)
[2020-12-26] MEDS ORDERED: INSULIN (LEVEMIR) 100 UNITS/ML UNITS SQ SCH (09:49)
[2020-12-26] MEDS: ASPIRIN 81 MG CHEWABLE TABLETS PO SCH (10:45)
[2020-12-26] MEDS: THIAMINE HCL 100 MG TABLET (FP) PO SCH (10:46)
[2020-12-26] MEDS: LISINOPRIL 5 MG TABLET PO SCH (10:46)
[2020-12-26 14:07] VITALS: BP 121/74; PULSE 99; TEMP 98
== END 2020-12-26 14:57 | disposition home or self-care (01) | DRG 45 ==
LOC: JER 12:39 → UNDOADMIN 17:52 → INTOOBSV 17:52 → JERBED 17:52 → J4S 12-23 15:16 → OBSVTOIN 12-23 19:41
PROVIDERS: ADMIT Internal Medicine; ATTEND Family Medicine
DX: I63.232 Cerebral infarction due to unspecified occlusion or stenosis of left carotid arteries (principal); T40.5X1A Poisoning by cocaine, accidental (unintentional), initial encounter; F14.20 Cocaine dependence, uncomplicated; E11.65 Type 2 diabetes mellitus with hyperglycemia; F10.230 Alcohol dependence with withdrawal, uncomplicated; I10 Essential (primary) hypertension; E78.5 Hyperlipidemia, unspecified; F12.10 Cannabis abuse, uncomplicated; Z85.79 Personal history of other malignant neoplasms of lymphoid, hematopoietic and related tissues; Z79.4 Long term (current) use of insulin; Y92.098 Other place in other non-institutional residence as the place of occurrence of the external cause
CPT/HCPCS: 36415; 70450-TC; 70496-TC; 70498-TC; 70544-TC; 70551-TC; 71045-TC-FY; 80053; 80061; 80307; 82550; 82553; 82607; 82728; 82962; 83036; 83615; 83721; 84443; 84484; 85025; 85610; 85730; 86140; 87086; 93005; 93010; 93306-TC; 93880-TC; 97116-GP; 97161-GP; 99285-25; C9803; G0378; Q9967; U0003

== ENCOUNTER 2024-05-04 13:14 | Inpatient (IN) | payer OTHER ==
[2024-05-04] MEDS ORDERED: VANCOMYCIN 1 GRAM (PRE-DOCKED) 1,000 MG/250 ML BAG IVPB ONE (15:04)
[2024-05-04] MEDS ORDERED: ACETAMINOPHEN INJECTION 100 ML IVPB ONE (15:04)
[2024-05-04] MEDS ORDERED: PIPERACILLIN/TAZOB 4.5 GM 4.5 GM/100 ML BAG IVPB ONE (15:04)
[2024-05-04 15:35] LABS: BASO % 0.2 % (0-2.0); EOS % 0.9 % (0-4.5); HEMATOCRIT 41.6 % (35.4-49); HEMOGLOBIN 13.1 GM/dL (11.7-16.9); LYMPH % 24.2 % (8-40); MCH 24.9 pg (25.7-33.7); MCHC 31.6 g/dl (32.0-35.9); MEAN CELL VOLUME 78.9 fl (80-96); MEAN PLT VOLUME 7.5 fl (7.5-11.1); MONO % 11.4 % (3.8-10.2); NEUT % 63.3 % (42.8-82.8); PLATELET COUNT 255 10^3/uL (134-434); RBC 5.27 M/mm3 (4.00-5.60); RDW 17.8 % (11.9-15.9); WHITE BLOOD COUNT 8.6 K/mm3 (4.0-10.0)
[2024-05-04 15:42] LABS: INR 1.1 (0.83-1.09); PROTHROMBIN TIME (PATIENT) 12.4 SEC (9.7-13.0)
[2024-05-04 15:45] LABS: ACTIVATED PTT 40.2 SECONDS (25.2-36.5)
[2024-05-04 15:52] LABS: POTASSIUM 3.2 mmol/L (3.5-5.1)
[2024-05-04 15:54] LABS: ALBUMIN 3.2 g/dl (3.4-5.0)
[2024-05-04 15:55] LABS: BLOOD UREA NITROGEN 10.2 mg/dL (7-18)
[2024-05-04 15:58] LABS: CREATININE 0.6 mg/dL (0.55-1.3)
[2024-05-04 15:59] LABS: BILIRUBIN,TOTAL 0.4 mg/dL (0.2-1); TOT PROT 7.3 g/dl (6.4-8.2)
[2024-05-04] MEDS: ACETAMINOPHEN 500 MG TABLET (FP) PO ONE (16:24)
[2024-05-04] MEDS: PIPERACILLIN/TAZOB 4.5 GM 4.5 GM in DEXTROSE 5%-WATER 100 ML IVPB ONE (16:25)
[2024-05-04] MEDS: VANCOMYCIN 1,000 MG in DEXTROSE 5%-WATER - 250 ML IVPB ONE (16:25)
[2024-05-04] MEDS: POTASSIUM CHLORIDE ORAL LIQUID 20 MEQ/15 ML PO ONE (17:34)
[2024-05-04 18:51] VITALS: BMI 28.0
[2024-05-04] MEDS ORDERED: HEPARIN NA (PORCINE) 5,000 UNITS/ML 1ML VIAL SQ SCH (22:00)
[2024-05-04] MEDS: ATORVASTATIN CA 80 MG TABLET (FP) PO SCH (22:16)
[2024-05-04] MEDS: APIXABAN 5 MG TABLET PO SCH (22:16)
[2024-05-04] MEDS: ACETAMINOPHEN 500 MG TABLET (FP) PO PRN (22:35)
[2024-05-05] MEDS: GABAPENTIN 300 MG CAPSULE PO ONE (00:36)
[2024-05-05] MEDS: PIPERACILLIN/TAZOB 3.375 GM 3.375 GM in DEXTROSE 5%-WATER - 50 ML IVPB SCH (01:52)
[2024-05-05] MEDS: VANCOMYCIN/WATER FOR INJ (PEG) 1,000 MG/200 ML BAG IVPB SCH (04:04)
[2024-05-05] MEDS: INSULIN ASPART SLIDING SCALE (NOVOLOG) 1 VIAL SQ SCH (06:21)
[2024-05-05] MEDS ORDERED: INSULIN ASPART SLIDING SCALE (NOVOLOG) 1 VIAL SQ ONE (06:42)
[2024-05-05] MEDS ORDERED: INSULIN (LEVEMIR) 100 UNITS/ML UNITS SQ ONE (06:43)
[2024-05-05 08:14] LABS: BASO % 0.3 % (0-2.0); HEMATOCRIT 37.5 % (35.4-49); HEMOGLOBIN 11.8 GM/dL (11.7-16.9); LYMPH % 22.2 % (8-40); MCH 24.8 pg (25.7-33.7); MCHC 31.4 g/dl (32.0-35.9); MEAN CELL VOLUME 78.9 fl (80-96); MEAN PLT VOLUME 7.6 fl (7.5-11.1); MONO % 13.3 % (3.8-10.2); NEUT % 62.2 % (42.8-82.8); PLATELET COUNT 219 10^3/uL (134-434); RBC 4.76 M/mm3 (4.00-5.60); RDW 17.8 % (11.9-15.9); WHITE BLOOD COUNT 8.6 K/mm3 (4.0-10.0)
[2024-05-05 08:36] LABS: POTASSIUM 3.3 mmol/L (3.5-5.1)
[2024-05-05 08:39] LABS: CALCIUM 8.7 mg/dL (8.5-10.1)
[2024-05-05 08:40] LABS: BLOOD UREA NITROGEN 13.5 mg/dL (7-18)
[2024-05-05 08:43] LABS: CREATININE 0.6 mg/dL (0.55-1.3)
[2024-05-05] MEDS: ASPIRIN 81 MG CHEWABLE TABLETS PO SCH (10:26)
[2024-05-05] MEDS: GABAPENTIN 300 MG CAPSULE PO SCH (15:33)
[2024-05-05] MEDS: ATORVASTATIN CA 80 MG TABLET (FP) PO SCH (21:41)
[2024-05-06] MEDS: PIPERACILLIN/TAZOB 3.375 GM 3.375 GM in DEXTROSE 5%-WATER - 50 ML IVPB SCH (02:01)
[2024-05-06] MEDS: VANCOMYCIN/WATER FOR INJ (PEG) 1,000 MG/200 ML BAG IVPB SCH (05:30)
[2024-05-06 08:41] LABS: BASO % 0.2 % (0-2.0); HEMATOCRIT 36.7 % (35.4-49); HEMOGLOBIN 11.7 GM/dL (11.7-16.9); LYMPH % 26.4 % (8-40); MCH 25.2 pg (25.7-33.7); MCHC 31.9 g/dl (32.0-35.9); MEAN PLT VOLUME 7.7 fl (7.5-11.1); MONO % 11.9 % (3.8-10.2); NEUT % 59.5 % (42.8-82.8); PLATELET COUNT 237 10^3/uL (134-434); RBC 4.64 M/mm3 (4.00-5.60); RDW 17.6 % (11.9-15.9); WHITE BLOOD COUNT 7.8 K/mm3 (4.0-10.0)
[2024-05-06 09:11] LABS: POTASSIUM 3.7 mmol/L (3.5-5.1)
[2024-05-06 09:13] LABS: CALCIUM 8.7 mg/dL (8.5-10.1)
[2024-05-06 09:14] LABS: ALBUMIN 2.8 g/dl (3.4-5.0); BLOOD UREA NITROGEN 13.1 mg/dL (7-18)
[2024-05-06 09:17] LABS: CREATININE 0.6 mg/dL (0.55-1.3)
[2024-05-06 09:19] LABS: BILIRUBIN,TOTAL 0.4 mg/dL (0.2-1); TOT PROT 6.3 g/dl (6.4-8.2)
[2024-05-06] MEDS: LISINOPRIL 5 MG TABLET PO SCH (09:57)
[2024-05-06] MEDS: ASPIRIN 81 MG CHEWABLE TABLETS PO SCH (09:57)
[2024-05-06] MEDS: THIAMINE 100 MG TABLET PO SCH (09:57)
[2024-05-08] MEDS ORDERED: ACETAMINOPHEN 1000 MG/100 ML BAG IVPB ONE (03:56)
[2024-05-08] MEDS ORDERED: traMADol HCL 50 MG TABLET PO ONE (04:11)
[2024-05-08] MEDS: traMADol HCL 50 MG TABLET PO ONE (04:30)
[2024-05-08] MEDS: DOXYCYCLINE HYCLATE 100 MG CAPSULE PO SCH (11:34)
[2024-05-10] MEDS: COLLAGENASE CLOSTRIDIUM HIST. 30 GRAMS TUBE TP SCH (10:32)
[2024-05-10 18:22] VITALS: RESP 18
[2024-05-11 13:25] VITALS: BP 135/72; PULSE 78; TEMP 98.4
== END 2024-05-11 13:30 | disposition home health service (06) | DRG 721 ==
LOC: JER 13:14 → JERBED 17:13 → J7W 18:27 → OBSVTOIN 05-06 11:38 → J5S 05-09 11:19
PROVIDERS: ADMIT Internal Medicine; ATTEND Internal Medicine
PROC: 0HBKXZZ Excision of Right Lower Leg Skin, External Approach (ICD-10-PCS; principal; 2024-05-09)
DX: T81.49XA Infection following a procedure, other surgical site, initial encounter (principal); T81.30XA Disruption of wound, unspecified, initial encounter; E11.42 Type 2 diabetes mellitus with diabetic polyneuropathy; E11.51 Type 2 diabetes mellitus with diabetic peripheral angiopathy without gangrene; I69.351 Hemiplegia and hemiparesis following cerebral infarction affecting right dominant side; E78.5 Hyperlipidemia, unspecified; I10 Essential (primary) hypertension; I73.9 Peripheral vascular disease, unspecified; L03.115 Cellulitis of right lower limb; Y83.9 Surgical procedure, unspecified as the cause of abnormal reaction of the patient, or of later complication, without mention of misadventure at the time of the procedure
CPT/HCPCS: 36415; 73560-TC-LT-FY; 80048; 80053; 82962; 85025; 85610; 85651; 85730; 86140; 86850; 86900; 86901; 87040; 87070; 87186; 87205; 93005; 93010; 97116-GP; 97162-GP; 99285-25; G0378; G0480